=== PATIENT | female | born 1960 | race Caucasian/White ===

== ENCOUNTER 2017-10-18 08:01 | Emergency (ER) | payer MEDICARE, OTHER ==
[~2017-10-18] VITALS: Ht 152.4 cm; Wt 48.5 kg
[~2017-10-18 08:01] MED LIST: ALPR1 PO; AMLO5 PO; BUME2 PO; CIPR500 PO; CLON.1; CLON.1 PO; CLOT10; CYMBALTA; Catapres0.2 MG PO; DEXL60CA3 PO; DOCU100 PO; ESTEST.625 PO; ESTR.625; ESTR.625 PO; ESTR2 PO; FURO80 PO; GABA300; GEMF600 PO; HYDACE10B; HYDCHL12.5 PO; HYDCHL25; HYDCHL50; HYDR-86 PO; HYDR1TAB94 PO; HYDRA25 PO; INSLI100I; INSLI100I SC; INSULANI; INSULANI SUBQ; INSULANPEN SC; INSULIN HUMALOG; INSULIN LANTUS; LEVFLO250 PO; LEVFLO500 PO; LEVSOD100 PO; LEVSOD175; LEVSOD175 PO; LIQUACEL 100 LI30 ML PO; LORA.5; METO10 PO; METO100ER; METO100ER PO; METO2.5 PO; METO5A; METR500 PO; Micro-K10 MEQ PO; NORT50; OLME20 PO; OLME5TAB PO; OMEP10ER; OMEP20ER; OMEP20ER PO; OMEPRAZOLE MAGN20 MG PO; ONDA4ODT MM; ONDA8 PO; OXYACE5T PO; OXYC30 PO; OXYC5 PO; Omeprazole20 M1 PO; PANT40; PANT40 PO; PERCOCET PO; POLYOX WSR-3011 GM PO; POTCHL20ER PO; PREG150 PO; PREG200 PO; PREG75; PREG75 PO; PROM25; PROM25 PO; PROM25S PR; Percocet 5-3251 EACH PO; ROPI.25 PO; ROPI1 PO; RXOXYACE PO; SIMV10 PO; SYNTHROID0.2 MG PO; TAMS.4ER PO; TRAM50 PO; TRAN4; TRAN4 PO; TRAVER2240; TRAVER4240; VENL150ER PO; VENL75ER; VENL75ER PO; VERA240ER PO; Zofran Odt4 MG PO
[2017-10-18 09:11] LABS: BASOPHILS ABSOLUTE AUTO 0.06 K/mm3 (0.00-0.23); BASOPHILS PERCENT AUTO 1 % (0-2); EOSINOPHILS ABSOLUTE AUTO 0.16 K/mm3 (0.00-0.68); EOSINOPHILS PERCENT AUTO 2 % (0-6); Hematocrit 35.3 % (33.0-51.0); Hemoglobin 11.4 g/dL (11.5-16.0); IMMATURE GRAN ABSOLUTE AUTO 0.02 K/mm3 (0.00-0.10); IMMATURE GRAN PERCENT AUTO 0 % (0-1); LYMPHOCYTES ABSOLUTE AUTO 1.37 K/mm3 (0.84-5.20); LYMPHOCYTES PERCENT AUTO 18 % (21-46); MONOCYTES ABSOLUTE AUTO 0.49 K/mm3 (0.16-1.47); MONOCYTES PERCENT AUTO 6 % (4-13); Mean Corpuscular HGB 26.9 pg (26.0-34.0); Mean Corpuscular HGB Conc 32.3 g/dL (31.5-36.5); Mean Corpuscular Volume 83 fL (80-100); Mean Platelet Volume 10.1 fL (9.1-12.4); NEUTROPHILS ABSOLUTE AUTO 5.65 K/mm3 (1.96-9.15); NEUTROPHILS PERCENT AUTO 73 % (41-73); Platelet Count 218 K/mm3 (150-400); RDW Coefficient Variation 15.5 % (11.7-14.2); RDW Standard Deviation 46.6 fL (35.1-46.3); Red Blood Cell Count 4.24 M/mm3 (3.80-5.20); White Blood Cell Count 7.75 K/mm3 (4.00-11.30)
[2017-10-18 09:24] LABS: International Normalized Ratio 1.03; Prothrombin Time Results 10.7 Sec (9.7-11.5)
[2017-10-18 09:35] LABS: Alanine Aminotransfer (ALT/SGP 26 U/L (12-78); Albumin, Blood 1.9 g/dL (3.4-5.0); Albumin/Globulin Ratio 0.6 (0.8-1.8); Alk Phos 110 U/L (50-136); Anion Gap 7 mmol/L (6-16); Aspartate Aminotrans (AST/SGOT 18 U/L (12-37); Bilirubin, Total 0.1 mg/dL (0.1-1.0); Blood Urea Nitrogen 48 mg/dL (8-24); Bun/Creatinine Ratio 20.4 (12.0-20.0); CO2, Blood 27 mmol/L (21-32); Calcium, Blood 7.2 mg/dL (8.5-10.1); Chloride, Blood 107 mmol/L (98-108); Creatinine, Blood 2.35 mg/dL (0.40-1.00); Globulin, Blood 3.3 g/dL (2.2-4.0); Glomerular Filtration Rate 23 (60-); Glucose, Blood 79 mg/dL (70-99); Potassium, Blood 3.3 mmol/L (3.5-5.5); Sodium, Blood 141 mmol/L (136-145); Total Protein, Blood 5.2 g/dL (6.4-8.2); Troponin I <0.015 ng/mL (0.000-0.040)
[2017-10-18 11:05] LABS: Bilirubin, Urine Neg (Neg); Blood, Urine 4+ (Neg); Glucose Qualitative, Urine 3+ (Neg); Ketones, Urine Neg (Neg); Leukocyte Esterase, Urine 1+ (Neg); Nitrite, Urine Neg (Neg); Protein, Urine 4+ (Neg); Urobilinogen, Urine NORM (Normal)
[2017-10-18 11:10] LABS: Appearance, Urine Clear (Clear); Color, Urine Yellow (P-Yellow)
[2017-10-18 11:11] LABS: Bacteria Mod /hpf; Squamous Epithelial Cells Few /hpf (Few); Transitional Epithelial Cells Few /hpf (0-Rare)
[2017-10-18] MEDS ORDERED: LEVFLO500 PO (12:22)
[2017-10-19] MEDS ORDERED: PROC25S PR (13:34)
[2018-02-09] MEDS ORDERED: LEVEMIR FL100 UNIT/1 SC (11:33)
[2018-02-09] MEDS ORDERED: Prinivil10 MG PO (11:36)
== END 2017-10-18 14:21 | disposition home or self-care (01) ==
LOC: ER 08:01
PROVIDERS: Emergency Medicine
DX: N39.0 Urinary tract infection, site not specified (principal); I12.9 Hypertensive chronic kidney disease with stage 1 through stage 4 chronic kidney disease, or unspecified chronic kidney disease; N18.9 Chronic kidney disease, unspecified; G89.4 Chronic pain syndrome; R60.1 Generalized edema; E11.22 Type 2 diabetes mellitus with diabetic chronic kidney disease; E11.40 Type 2 diabetes mellitus with diabetic neuropathy, unspecified; F17.200 Nicotine dependence, unspecified, uncomplicated; Z88.1 Allergy status to other antibiotic agents; Z79.899 Other long term (current) drug therapy; Z90.49 Acquired absence of other specified parts of digestive tract; Z90.710 Acquired absence of both cervix and uterus
CPT/HCPCS: 36415; 80053; 81001; 83690; 84484; 85025; 85610; 87086; 93005; 93010; 96365; 96366; 96375; 96376; 99284; J1170; J1956; J2405; J7030

== ENCOUNTER 2017-10-19 11:46 | Emergency (ER) | payer MEDICARE, OTHER ==
[~2017-10-19] VITALS: Ht 152.4 cm; Wt 48.5 kg
[2017-10-19 12:30] LABS: BASOPHILS ABSOLUTE AUTO 0.07 K/mm3 (0.00-0.23); BASOPHILS PERCENT AUTO 1 % (0-2); EOSINOPHILS ABSOLUTE AUTO 0.16 K/mm3 (0.00-0.68); EOSINOPHILS PERCENT AUTO 2 % (0-6); IMMATURE GRAN ABSOLUTE AUTO 0.03 K/mm3 (0.00-0.10); IMMATURE GRAN PERCENT AUTO 0 % (0-1); LYMPHOCYTES ABSOLUTE AUTO 1.12 K/mm3 (0.84-5.20); LYMPHOCYTES PERCENT AUTO 11 % (21-46); MONOCYTES ABSOLUTE AUTO 0.39 K/mm3 (0.16-1.47); MONOCYTES PERCENT AUTO 4 % (4-13); Mean Corpuscular HGB 26.9 pg (26.0-34.0); Mean Corpuscular HGB Conc 32.4 g/dL (31.5-36.5); Mean Corpuscular Volume 83 fL (80-100); Mean Platelet Volume 10.3 fL (9.1-12.4); NEUTROPHILS ABSOLUTE AUTO 8.06 K/mm3 (1.96-9.15); NEUTROPHILS PERCENT AUTO 82 % (41-73); Platelet Count 237 K/mm3 (150-400); RDW Coefficient Variation 15.9 % (11.7-14.2); RDW Standard Deviation 47.8 fL (35.1-46.3); Red Blood Cell Count 4.46 M/mm3 (3.80-5.20); White Blood Cell Count 9.83 K/mm3 (4.00-11.30)
[2017-10-19 13:09] LABS: Albumin, Blood 2.2 g/dL (3.4-5.0); Albumin/Globulin Ratio 0.6 (0.8-1.8); Alk Phos 135 U/L (50-136); Anion Gap 9 mmol/L (6-16); Aspartate Aminotrans (AST/SGOT 54 U/L (12-37); Bilirubin, Total 0.2 mg/dL (0.1-1.0); Blood Urea Nitrogen 51 mg/dL (8-24); Bun/Creatinine Ratio 18.8 (12.0-20.0); CO2, Blood 24 mmol/L (21-32); Calcium, Blood 8.1 mg/dL (8.5-10.1); Chloride, Blood 103 mmol/L (98-108); Creatinine, Blood 2.71 mg/dL (0.40-1.00); Globulin, Blood 3.6 g/dL (2.2-4.0); Glomerular Filtration Rate 19 (60-); Glucose, Blood 178 mg/dL (70-99); Potassium, Blood 4.4 mmol/L (3.5-5.5); Sodium, Blood 136 mmol/L (136-145); Total Protein, Blood 5.8 g/dL (6.4-8.2)
[2017-10-19] MEDS ORDERED: PROC25S PR (13:34)
[2017-10-20] MEDS ORDERED: Omeprazole20 M1 PO (17:07)
[2017-10-20] MEDS ORDERED: TAMS.4ER PO (17:08)
[2017-10-20] MEDS ORDERED: OLME20 PO (17:13)
[2017-10-20] MEDS ORDERED: SYNTHROID0.2 MG PO (17:13)
[2017-10-20] MEDS ORDERED: FURO80 PO (17:18)
[2017-10-20] MEDS ORDERED: PREG75 PO (17:18)
[2017-10-20] MEDS ORDERED: Dazidox10 MG PO (17:19)
[2017-10-20] MEDS ORDERED: ROXICODONE5 MG PO (17:19)
[2017-10-20] MEDS ORDERED: ROPI1 PO (17:20)
[2017-10-20] MEDS ORDERED: ALUM320SU PO (17:21)
[2017-10-20] MEDS ORDERED: CLON.1 PO (17:21)
[2017-10-20] MEDS ORDERED: HYDRA25 PO (17:21)
[2017-10-20] MEDS ORDERED: Simvastatin20 MG PO (17:22)
[2017-10-20] MEDS ORDERED: GAVILAX17 GM PO (17:22)
[2017-10-20] MEDS ORDERED: INSULIN SYRING (17:23)
[2017-10-20] MEDS ORDERED: Lantus100 UNIT/1 SC (17:24)
[2018-02-09] MEDS ORDERED: LEVEMIR FL100 UNIT/1 SC (11:33)
[2018-02-09] MEDS ORDERED: Prinivil10 MG PO (11:36)
== END 2017-10-19 15:36 | disposition home or self-care (01) ==
LOC: ER 11:46
PROVIDERS: Emergency Medicine
DX: R10.9 Unspecified abdominal pain (principal); F11.23 Opioid dependence with withdrawal; R11.2 Nausea with vomiting, unspecified; Z88.8 Allergy status to other drugs, medicaments and biological substances; Z79.899 Other long term (current) drug therapy; Z79.2 Long term (current) use of antibiotics; E11.40 Type 2 diabetes mellitus with diabetic neuropathy, unspecified; I10 Essential (primary) hypertension; F17.200 Nicotine dependence, unspecified, uncomplicated
CPT/HCPCS: 36415; 80053; 83690; 85025; 93005; 93010; 96365; 96374; 96375; 99284; J1170; J1956; J2405; J2765; J7030

== ENCOUNTER 2017-10-20 15:31 | Inpatient (IN) | payer MEDICARE, OTHER ==
[~2017-10-20] VITALS: Ht 154.9 cm; Wt 58.6 kg
[~2017-10-20 15:31] MED LIST changes: +PROC25S PR
[2017-10-20 16:25] LABS: Calcium, Ionized (POC) 1.06 mmol/L (1.10-1.46); Chloride (POC) 100 mmol/L (98-108); Creatinine (POC) 3.5 mg/dL (0.6-1.0); Glucose (ISTAT POC) 327 mg/dL (70-99); Hemoglobin (POC) 13.9 g/dL (12.0-16.0); Potassium (POC) 3.8 mmol/L (3.5-5.5); Sodium (POC) 134 mmol/L (135-148); Total CO2 (POC) 24 mmol/L (21-32)
[2017-10-20 16:39] LABS: BASOPHILS ABSOLUTE AUTO 0.06 K/mm3 (0.00-0.23); BASOPHILS PERCENT AUTO 1 % (0-2); EOSINOPHILS ABSOLUTE AUTO 0.03 K/mm3 (0.00-0.68); EOSINOPHILS PERCENT AUTO 0 % (0-6); Hematocrit 40.7 % (33.0-51.0); Hemoglobin 13.3 g/dL (11.5-16.0); IMMATURE GRAN ABSOLUTE AUTO 0.08 K/mm3 (0.00-0.10); IMMATURE GRAN PERCENT AUTO 1 % (0-1); LYMPHOCYTES ABSOLUTE AUTO 1.06 K/mm3 (0.84-5.20); LYMPHOCYTES PERCENT AUTO 8 % (21-46); MONOCYTES ABSOLUTE AUTO 0.19 K/mm3 (0.16-1.47); MONOCYTES PERCENT AUTO 2 % (4-13); Mean Corpuscular HGB 27.1 pg (26.0-34.0); Mean Corpuscular HGB Conc 32.7 g/dL (31.5-36.5); Mean Corpuscular Volume 83 fL (80-100); Mean Platelet Volume 10.1 fL (9.1-12.4); NEUTROPHILS ABSOLUTE AUTO 11.45 K/mm3 (1.96-9.15); NEUTROPHILS PERCENT AUTO 89 % (41-73); Platelet Count 260 K/mm3 (150-400); RDW Coefficient Variation 15.8 % (11.7-14.2); RDW Standard Deviation 47.4 fL (35.1-46.3); Red Blood Cell Count 4.91 M/mm3 (3.80-5.20); White Blood Cell Count 12.87 K/mm3 (4.00-11.30)
[2017-10-20 17:02] LABS: Albumin, Blood 2.8 g/dL (3.4-5.0); Albumin/Globulin Ratio 0.7 (0.8-1.8); Bilirubin, Total 0.4 mg/dL (0.1-1.0); Bun/Creatinine Ratio 20.5 (12.0-20.0); Calcium, Blood 8.8 mg/dL (8.5-10.1); Creatinine, Blood 3.17 mg/dL (0.40-1.00); Globulin, Blood 3.8 g/dL (2.2-4.0); Potassium, Blood 3.8 mmol/L (3.5-5.5); Total Protein, Blood 6.6 g/dL (6.4-8.2)
[2017-10-20] MEDS ORDERED: Omeprazole20 M1 PO (17:07)
[2017-10-20] MEDS ORDERED: TAMS.4ER PO (17:08)
[2017-10-20] MEDS ORDERED: OLME20 PO (17:13)
[2017-10-20] MEDS ORDERED: SYNTHROID0.2 MG PO (17:13)
[2017-10-20] MEDS ORDERED: FURO80 PO (17:18)
[2017-10-20] MEDS ORDERED: PREG75 PO (17:18)
[2017-10-20] MEDS ORDERED: ROXICODONE5 MG PO (17:19)
[2017-10-20] MEDS ORDERED: Dazidox10 MG PO (17:19)
[2017-10-20] MEDS ORDERED: ROPI1 PO (17:20)
[2017-10-20] MEDS ORDERED: ALUM320SU PO (17:21)
[2017-10-20] MEDS ORDERED: HYDRA25 PO (17:21)
[2017-10-20] MEDS ORDERED: CLON.1 PO (17:21)
[2017-10-20] MEDS ORDERED: Simvastatin20 MG PO (17:22)
[2017-10-20] MEDS ORDERED: GAVILAX17 GM PO (17:22)
[2017-10-20] MEDS ORDERED: INSULIN SYRING (17:23)
[2017-10-20] MEDS ORDERED: Lantus100 UNIT/1 SC (17:24)
[2017-10-21 00:31] LABS: Hematocrit 36.7 % (33.0-51.0); Hemoglobin 11.7 g/dL (11.5-16.0)
[2017-10-21 06:20] LABS: Hematocrit 32.7 % (33.0-51.0); Hemoglobin 10.7 g/dL (11.5-16.0); Mean Corpuscular HGB Conc 32.7 g/dL (31.5-36.5); Mean Corpuscular Volume 83 fL (80-100); Mean Platelet Volume 10.2 fL (9.1-12.4); Platelet Count 221 K/mm3 (150-400); RDW Coefficient Variation 15.8 % (11.7-14.2); RDW Standard Deviation 47.2 fL (35.1-46.3); Red Blood Cell Count 3.96 M/mm3 (3.80-5.20); White Blood Cell Count 11.22 K/mm3 (4.00-11.30)
[2017-10-21 06:43] LABS: Alanine Aminotransfer (ALT/SGP 39 U/L (12-78); Albumin, Blood 2.2 g/dL (3.4-5.0); Albumin/Globulin Ratio 0.7 (0.8-1.8); Alk Phos 117 U/L (50-136); Anion Gap 17 mmol/L (6-16); Aspartate Aminotrans (AST/SGOT 34 U/L (12-37); Bilirubin, Total 0.3 mg/dL (0.1-1.0); Blood Urea Nitrogen 75 mg/dL (8-24); Bun/Creatinine Ratio 22.3 (12.0-20.0); CO2, Blood 19 mmol/L (21-32); Calcium, Blood 7.7 mg/dL (8.5-10.1); Chloride, Blood 102 mmol/L (98-108); Creatinine, Blood 3.37 mg/dL (0.40-1.00); Globulin, Blood 3.1 g/dL (2.2-4.0); Glomerular Filtration Rate 15 (60-); Glucose, Blood 249 mg/dL (70-99); Magnesium, Blood 2.2 mg/dL (1.6-2.4); Phosphorus, Blood 5.2 mg/dL (2.5-4.9); Potassium, Blood 3.4 mmol/L (3.5-5.5); Sodium, Blood 138 mmol/L (136-145); Total Protein, Blood 5.3 g/dL (6.4-8.2)
[2017-10-21 08:12] LABS: PCO2 Arterial 31 mmHg (35-45); PO2 Arterial 78 mmHg (80-100); pH Blood Arterial 7.41 (7.35-7.45)
[2017-10-22 06:06] LABS: Calcium, Blood 6.7 mg/dL (8.5-10.1); Creatinine, Blood 3.52 mg/dL (0.40-1.00); Potassium, Blood 4.7 mmol/L (3.5-5.5)
[2017-10-23 05:21] LABS: BASOPHILS ABSOLUTE AUTO 0.03 K/mm3 (0.00-0.23); BASOPHILS PERCENT AUTO 0 % (0-2); EOSINOPHILS ABSOLUTE AUTO 0.37 K/mm3 (0.00-0.68); EOSINOPHILS PERCENT AUTO 5 % (0-6); Hematocrit 30.9 % (33.0-51.0); Hemoglobin 9.9 g/dL (11.5-16.0); IMMATURE GRAN ABSOLUTE AUTO 0.04 K/mm3 (0.00-0.10); IMMATURE GRAN PERCENT AUTO 1 % (0-1); LYMPHOCYTES PERCENT AUTO 15 % (21-46); MONOCYTES ABSOLUTE AUTO 0.41 K/mm3 (0.16-1.47); MONOCYTES PERCENT AUTO 6 % (4-13); Mean Corpuscular Volume 84 fL (80-100); Mean Platelet Volume 10.4 fL (9.1-12.4); NEUTROPHILS ABSOLUTE AUTO 5.41 K/mm3 (1.96-9.15); NEUTROPHILS PERCENT AUTO 74 % (41-73); Platelet Count 182 K/mm3 (150-400); RDW Coefficient Variation 16.4 % (11.7-14.2); RDW Standard Deviation 50.5 fL (35.1-46.3); Red Blood Cell Count 3.66 M/mm3 (3.80-5.20); White Blood Cell Count 7.36 K/mm3 (4.00-11.30)
[2017-10-23 05:55] LABS: Alanine Aminotransfer (ALT/SGP 202 U/L (12-78); Albumin, Blood 1.8 g/dL (3.4-5.0); Albumin/Globulin Ratio 0.6 (0.8-1.8); Alk Phos 209 U/L (50-136); Anion Gap 10 mmol/L (6-16); Aspartate Aminotrans (AST/SGOT 171 U/L (12-37); Bilirubin, Total 0.4 mg/dL (0.1-1.0); Blood Urea Nitrogen 71 mg/dL (8-24); Bun/Creatinine Ratio 19.1 (12.0-20.0); CO2, Blood 21 mmol/L (21-32); Calcium, Blood 6.9 mg/dL (8.5-10.1); Chloride, Blood 100 mmol/L (98-108); Creatinine, Blood 3.71 mg/dL (0.40-1.00); Globulin, Blood 2.8 g/dL (2.2-4.0); Glomerular Filtration Rate 13 (60-); Glucose, Blood 137 mg/dL (70-99); Potassium, Blood 4.3 mmol/L (3.5-5.5); Sodium, Blood 131 mmol/L (136-145); Total Protein, Blood 4.6 g/dL (6.4-8.2)
[2017-10-24 05:22] LABS: Hematocrit 32.6 % (33.0-51.0); Hemoglobin 10.4 g/dL (11.5-16.0)
[2017-10-24 05:40] LABS: Albumin, Blood 1.8 g/dL (3.4-5.0); Anion Gap 9 mmol/L (6-16); Blood Urea Nitrogen 73 mg/dL (8-24); Bun/Creatinine Ratio 18.9 (12.0-20.0); CO2, Blood 22 mmol/L (21-32); Calcium, Blood 7.1 mg/dL (8.5-10.1); Chloride, Blood 97 mmol/L (98-108); Creatinine, Blood 3.87 mg/dL (0.40-1.00); Glomerular Filtration Rate 13 (60-); Glucose, Blood 240 mg/dL (70-99); Magnesium, Blood 2.1 mg/dL (1.6-2.4); Phosphorus, Blood 2.4 mg/dL (2.5-4.9); Potassium, Blood 4.6 mmol/L (3.5-5.5); Sodium, Blood 128 mmol/L (136-145)
[2017-10-25 04:47] LABS: Hematocrit 32.7 % (33.0-51.0); Hemoglobin 10.5 g/dL (11.5-16.0)
[2017-10-25 05:10] LABS: Albumin, Blood 1.9 g/dL (3.4-5.0); Anion Gap 9 mmol/L (6-16); Blood Urea Nitrogen 74 mg/dL (8-24); Bun/Creatinine Ratio 19.2 (12.0-20.0); CO2, Blood 24 mmol/L (21-32); Calcium, Blood 7.6 mg/dL (8.5-10.1); Chloride, Blood 97 mmol/L (98-108); Creatinine, Blood 3.86 mg/dL (0.40-1.00); Glomerular Filtration Rate 13 (60-); Glucose, Blood 193 mg/dL (70-99); Magnesium, Blood 2.1 mg/dL (1.6-2.4); Phosphorus, Blood 2.7 mg/dL (2.5-4.9); Potassium, Blood 4.3 mmol/L (3.5-5.5); Sodium, Blood 130 mmol/L (136-145)
[2017-10-26 05:35] LABS: Hematocrit 32.2 % (33.0-51.0); Hemoglobin 10.4 g/dL (11.5-16.0)
[2017-10-26 06:00] LABS: Albumin, Blood 1.9 g/dL (3.4-5.0); Anion Gap 8 mmol/L (6-16); Blood Urea Nitrogen 55 mg/dL (8-24); Bun/Creatinine Ratio 16.9 (12.0-20.0); CO2, Blood 24 mmol/L (21-32); Calcium, Blood 7.3 mg/dL (8.5-10.1); Chloride, Blood 97 mmol/L (98-108); Creatinine, Blood 3.25 mg/dL (0.40-1.00); Glomerular Filtration Rate 16 (60-); Glucose, Blood 272 mg/dL (70-99); Magnesium, Blood 2.1 mg/dL (1.6-2.4); Phosphorus, Blood 2.4 mg/dL (2.5-4.9); Potassium, Blood 4.8 mmol/L (3.5-5.5); Sodium, Blood 129 mmol/L (136-145)
[2017-10-26 18:00] LABS: HCV Non Reactive (NR)
[2017-10-27 04:45] LABS: Hematocrit 29.3 % (33.0-51.0); Hemoglobin 9.5 g/dL (11.5-16.0)
[2017-10-27 05:07] LABS: Albumin, Blood 1.8 g/dL (3.4-5.0); Anion Gap 7 mmol/L (6-16); Blood Urea Nitrogen 41 mg/dL (8-24); Bun/Creatinine Ratio 16.6 (12.0-20.0); CO2, Blood 27 mmol/L (21-32); Calcium, Blood 7.3 mg/dL (8.5-10.1); Chloride, Blood 100 mmol/L (98-108); Creatinine, Blood 2.47 mg/dL (0.40-1.00); Glomerular Filtration Rate 21 (60-); Glucose, Blood 154 mg/dL (70-99); Phosphorus, Blood 2.2 mg/dL (2.5-4.9); Potassium, Blood 4.4 mmol/L (3.5-5.5); Sodium, Blood 134 mmol/L (136-145)
[2017-10-28 04:43] LABS: Hematocrit 32.5 % (33.0-51.0); Hemoglobin 10.5 g/dL (11.5-16.0)
[2017-10-28 05:02] LABS: Anion Gap 8 mmol/L (6-16); Blood Urea Nitrogen 29 mg/dL (8-24); Bun/Creatinine Ratio 13.6 (12.0-20.0); CO2, Blood 27 mmol/L (21-32); Calcium, Blood 7.6 mg/dL (8.5-10.1); Chloride, Blood 98 mmol/L (98-108); Creatinine, Blood 2.13 mg/dL (0.40-1.00); Glomerular Filtration Rate 25 (60-); Glucose, Blood 247 mg/dL (70-99); Phosphorus, Blood 2.1 mg/dL (2.5-4.9); Potassium, Blood 4.3 mmol/L (3.5-5.5); Sodium, Blood 133 mmol/L (136-145)
[2017-10-28] MEDS ORDERED: BUME2 PO (11:21)
[2017-10-28] MEDS ORDERED: DOCU100 PO (11:21)
[2017-10-28] MEDS ORDERED: INSU100I6 SC (11:22)
[2017-10-28] MEDS ORDERED: LIDO700A20 TOP (11:23)
[2017-10-28] MEDS ORDERED: SENN187 PO (11:23)
[2018-02-09] MEDS ORDERED: LEVEMIR FL100 UNIT/1 SC (11:33)
[2018-02-09] MEDS ORDERED: Prinivil10 MG PO (11:36)
== END 2017-10-28 13:57 | disposition home or self-care (01) | DRG 699 ==
LOC: ER 15:31 → MEDS 15:32 → PCU 15:32 → ER 18:16 → PCU 18:16 → MEDS 10-21 17:13 → ENPENDDIS 10-28 10:16 → MEDS 10-28 13:57
PROVIDERS: Emergency Medicine; Hospitalist; Internal Medicine; Internal Medicine Nephrology; Surgery
PROC: 5A1D70Z Performance of Urinary Filtration, Intermittent, Less than 6 Hours Per Day (ICD-10-PCS; 2017-10-25)
PROC: 02HV33Z Insertion of Infusion Device into Superior Vena Cava, Percutaneous Approach (ICD-10-PCS; principal; 2017-10-25 13:00)
PROC: 5A1D70Z Performance of Urinary Filtration, Intermittent, Less than 6 Hours Per Day (ICD-10-PCS; 2017-10-26)
PROC: 5A1D70Z Performance of Urinary Filtration, Intermittent, Less than 6 Hours Per Day (ICD-10-PCS; 2017-10-27)
DX: N04.9 Nephrotic syndrome with unspecified morphologic changes (principal); F11.20 Opioid dependence, uncomplicated; K92.0 Hematemesis; E11.40 Type 2 diabetes mellitus with diabetic neuropathy, unspecified; E11.21 Type 2 diabetes mellitus with diabetic nephropathy; K31.84 Gastroparesis; E11.22 Type 2 diabetes mellitus with diabetic chronic kidney disease; N18.4 Chronic kidney disease, stage 4 (severe); I16.1 Hypertensive emergency; E87.1 Hypo-osmolality and hyponatremia; N17.0 Acute kidney failure with tubular necrosis; E89.0 Postprocedural hypothyroidism; I12.9 Hypertensive chronic kidney disease with stage 1 through stage 4 chronic kidney disease, or unspecified chronic kidney disease; E78.5 Hyperlipidemia, unspecified; K59.00 Constipation, unspecified; E21.3 Hyperparathyroidism, unspecified; R80.9 Proteinuria, unspecified; R31.29 Other microscopic hematuria; E86.0 Dehydration; E11.43 Type 2 diabetes mellitus with diabetic autonomic (poly)neuropathy; G89.29 Other chronic pain; F17.210 Nicotine dependence, cigarettes, uncomplicated; E66.9 Obesity, unspecified; E87.6 Hypokalemia; E88.09 Other disorders of plasma-protein metabolism, not elsewhere classified; E83.39 Other disorders of phosphorus metabolism; Z90.49 Acquired absence of other specified parts of digestive tract; Z79.899 Other long term (current) drug therapy; Z79.4 Long term (current) use of insulin; Z87.442 Personal history of urinary calculi; Z85.850 Personal history of malignant neoplasm of thyroid; Z88.1 Allergy status to other antibiotic agents; Z68.24 Body mass index [BMI] 24.0-24.9, adult
CPT/HCPCS: 36415; 36600; 51702; 71046; 77001; 80047; 80048; 80053; 80069; 80074; 82803; 82947; 83690; 83735; 84100; 85014; 85018; 85025; 85027; 86706; 93005; 93010; 93970; 96361; 96374; 96376; 99285; C1750; C9113; G0378; J0360; J1170; J1644; J1815; J2250; J2405; J2765; J3010; J3480; J7030; J7040; J7050; J7060; P9041

== ENCOUNTER 2017-11-08 15:15 | Inpatient (IN) | payer MEDICARE, OTHER ==
[~2017-11-08] VITALS: Ht 152.4 cm; Wt 61.0 kg
[~2017-11-08 15:15] MED LIST changes: +ALUM320SU PO; +Dazidox10 MG PO; +GAVILAX17 GM PO; +INSU100I6 SC; +INSULIN SYRING; +LIDO700A20 TOP; +Lantus100 UNIT/1 SC; +ROXICODONE5 MG PO; +SENN187 PO; +Simvastatin20 MG PO
[2017-11-08 15:55] LABS: BASOPHILS ABSOLUTE AUTO 0.07 K/mm3 (0.00-0.23); BASOPHILS PERCENT AUTO 1 % (0-2); EOSINOPHILS ABSOLUTE AUTO 0.33 K/mm3 (0.00-0.68); EOSINOPHILS PERCENT AUTO 4 % (0-6); Hematocrit 30.6 % (33.0-51.0); Hemoglobin 9.8 g/dL (11.5-16.0); IMMATURE GRAN ABSOLUTE AUTO 0.04 K/mm3 (0.00-0.10); IMMATURE GRAN PERCENT AUTO 1 % (0-1); LYMPHOCYTES ABSOLUTE AUTO 1.15 K/mm3 (0.84-5.20); LYMPHOCYTES PERCENT AUTO 14 % (21-46); MONOCYTES ABSOLUTE AUTO 0.37 K/mm3 (0.16-1.47); MONOCYTES PERCENT AUTO 5 % (4-13); Mean Corpuscular HGB 27.7 pg (26.0-34.0); Mean Corpuscular Volume 86 fL (80-100); NEUTROPHILS ABSOLUTE AUTO 6.23 K/mm3 (1.96-9.15); NEUTROPHILS PERCENT AUTO 76 % (41-73); Platelet Count 220 K/mm3 (150-400); RDW Coefficient Variation 16.2 % (11.7-14.2); RDW Standard Deviation 51.3 fL (35.1-46.3); Red Blood Cell Count 3.54 M/mm3 (3.80-5.20); White Blood Cell Count 8.19 K/mm3 (4.00-11.30)
[2017-11-08 16:11] LABS: Alanine Aminotransfer (ALT/SGP 58 U/L (12-78); Albumin, Blood 2.3 g/dL (3.4-5.0); Albumin/Globulin Ratio 0.6 (0.8-1.8); Alk Phos 154 U/L (50-136); Anion Gap 9 mmol/L (6-16); Aspartate Aminotrans (AST/SGOT 49 U/L (12-37); Bilirubin, Total 0.2 mg/dL (0.1-1.0); Blood Urea Nitrogen 17 mg/dL (8-24); Bun/Creatinine Ratio 8.9 (12.0-20.0); CO2, Blood 32 mmol/L (21-32); Calcium, Blood 7.9 mg/dL (8.5-10.1); Chloride, Blood 96 mmol/L (98-108); Creatinine, Blood 1.92 mg/dL (0.40-1.00); Globulin, Blood 3.6 g/dL (2.2-4.0); Glomerular Filtration Rate 29 (60-); Glucose, Blood 246 mg/dL (70-99); Potassium, Blood 4.2 mmol/L (3.5-5.5); Sodium, Blood 137 mmol/L (136-145); Total Protein, Blood 5.9 g/dL (6.4-8.2); Troponin I <0.015 ng/mL (0.000-0.040)
[2017-11-08 16:12] LABS: International Normalized Ratio 0.94; Prothrombin Time Results 9.8 Sec (9.7-11.5)
[2017-11-09 04:08] LABS: Appearance, Urine Clear (Clear); Color, Urine Yellow (P-Yellow); Leukocyte Esterase, Urine Neg (Neg); Nitrite, Urine Neg (Neg); Protein, Urine 4+ (Neg); Source, Urine Catheter
[2017-11-09 04:09] LABS: Bacteria Few /hpf; Bilirubin, Urine Neg (Neg); Blood, Urine Neg (Neg); Glucose Qualitative, Urine 2+ (Neg); Ketones, Urine Neg (Neg); Red Blood Cells, Urine 0-2 /hpf (0-2); Squamous Epithelial Cells Not Seen /hpf (Few); Urobilinogen, Urine NORM (Normal)
[2017-11-09 05:17] LABS: BASOPHILS ABSOLUTE AUTO 0.05 K/mm3 (0.00-0.23); BASOPHILS PERCENT AUTO 1 % (0-2); EOSINOPHILS ABSOLUTE AUTO 0.33 K/mm3 (0.00-0.68); EOSINOPHILS PERCENT AUTO 6 % (0-6); Hematocrit 27.7 % (33.0-51.0); Hemoglobin 8.5 g/dL (11.5-16.0); IMMATURE GRAN ABSOLUTE AUTO 0.02 K/mm3 (0.00-0.10); IMMATURE GRAN PERCENT AUTO 0 % (0-1); LYMPHOCYTES PERCENT AUTO 29 % (21-46); MONOCYTES ABSOLUTE AUTO 0.33 K/mm3 (0.16-1.47); MONOCYTES PERCENT AUTO 6 % (4-13); Mean Corpuscular HGB Conc 30.7 g/dL (31.5-36.5); Mean Corpuscular Volume 88 fL (80-100); Mean Platelet Volume 9.6 fL (9.1-12.4); NEUTROPHILS ABSOLUTE AUTO 3.18 K/mm3 (1.96-9.15); NEUTROPHILS PERCENT AUTO 58 % (41-73); Platelet Count 180 K/mm3 (150-400); RDW Coefficient Variation 16.5 % (11.7-14.2); Red Blood Cell Count 3.15 M/mm3 (3.80-5.20); White Blood Cell Count 5.51 K/mm3 (4.00-11.30)
[2017-11-09 05:51] LABS: Magnesium, Blood 2.1 mg/dL (1.6-2.4)
[2017-11-09 05:53] LABS: Anion Gap 6 mmol/L (6-16); Blood Urea Nitrogen 14 mg/dL (8-24); Bun/Creatinine Ratio 7.8 (12.0-20.0); CO2, Blood 34 mmol/L (21-32); Calcium, Blood 7.8 mg/dL (8.5-10.1); Chloride, Blood 98 mmol/L (98-108); Glomerular Filtration Rate 31 (60-); Glucose, Blood 89 mg/dL (70-99); Phosphorus, Blood 2.8 mg/dL (2.5-4.9); Sodium, Blood 138 mmol/L (136-145)
[2017-11-10 05:47] LABS: Hematocrit 31.1 % (33.0-51.0); Hemoglobin 9.9 g/dL (11.5-16.0)
[2017-11-10 06:11] LABS: Anion Gap 8 mmol/L (6-16); Blood Urea Nitrogen 19 mg/dL (8-24); Bun/Creatinine Ratio 10.6 (12.0-20.0); CO2, Blood 28 mmol/L (21-32); Calcium, Blood 7.6 mg/dL (8.5-10.1); Chloride, Blood 98 mmol/L (98-108); Glomerular Filtration Rate 31 (60-); Glucose, Blood 132 mg/dL (70-99); Magnesium, Blood 2.1 mg/dL (1.6-2.4); Phosphorus, Blood 3.5 mg/dL (2.5-4.9); Potassium, Blood 4.8 mmol/L (3.5-5.5); Sodium, Blood 134 mmol/L (136-145)
[2017-11-11 05:50] LABS: Hematocrit 31.7 % (33.0-51.0); Hemoglobin 10.1 g/dL (11.5-16.0)
[2017-11-11 06:22] LABS: Anion Gap 7 mmol/L (6-16); Blood Urea Nitrogen 24 mg/dL (8-24); Bun/Creatinine Ratio 11.4 (12.0-20.0); CO2, Blood 29 mmol/L (21-32); Calcium, Blood 7.8 mg/dL (8.5-10.1); Chloride, Blood 96 mmol/L (98-108); Creatinine, Blood 2.11 mg/dL (0.40-1.00); Glomerular Filtration Rate 26 (60-); Glucose, Blood 155 mg/dL (70-99); Magnesium, Blood 2.2 mg/dL (1.6-2.4); Phosphorus, Blood 3.3 mg/dL (2.5-4.9); Potassium, Blood 4.9 mmol/L (3.5-5.5); Sodium, Blood 132 mmol/L (136-145)
[2017-11-12 05:25] LABS: Hematocrit 31.4 % (33.0-51.0); Hemoglobin 9.8 g/dL (11.5-16.0)
[2017-11-12 05:46] LABS: Albumin, Blood 2.2 g/dL (3.4-5.0); Anion Gap 5 mmol/L (6-16); Blood Urea Nitrogen 25 mg/dL (8-24); Bun/Creatinine Ratio 14.3 (12.0-20.0); CO2, Blood 29 mmol/L (21-32); Calcium, Blood 7.9 mg/dL (8.5-10.1); Chloride, Blood 101 mmol/L (98-108); Creatinine, Blood 1.75 mg/dL (0.40-1.00); Glomerular Filtration Rate 32 (60-); Glucose, Blood 88 mg/dL (70-99); Magnesium, Blood 2.3 mg/dL (1.6-2.4); Phosphorus, Blood 2.7 mg/dL (2.5-4.9); Potassium, Blood 4.6 mmol/L (3.5-5.5); Sodium, Blood 135 mmol/L (136-145)
[2017-11-13 05:24] LABS: BASOPHILS ABSOLUTE AUTO 0.05 K/mm3 (0.00-0.23); BASOPHILS PERCENT AUTO 1 % (0-2); EOSINOPHILS ABSOLUTE AUTO 0.28 K/mm3 (0.00-0.68); EOSINOPHILS PERCENT AUTO 4 % (0-6); Hematocrit 28.9 % (33.0-51.0); Hemoglobin 9.3 g/dL (11.5-16.0); IMMATURE GRAN ABSOLUTE AUTO 0.03 K/mm3 (0.00-0.10); IMMATURE GRAN PERCENT AUTO 1 % (0-1); LYMPHOCYTES ABSOLUTE AUTO 1.48 K/mm3 (0.84-5.20); LYMPHOCYTES PERCENT AUTO 23 % (21-46); MONOCYTES ABSOLUTE AUTO 0.42 K/mm3 (0.16-1.47); MONOCYTES PERCENT AUTO 7 % (4-13); Mean Corpuscular HGB 27.8 pg (26.0-34.0); Mean Corpuscular HGB Conc 32.2 g/dL (31.5-36.5); Mean Corpuscular Volume 87 fL (80-100); Mean Platelet Volume 10.5 fL (9.1-12.4); NEUTROPHILS ABSOLUTE AUTO 4.25 K/mm3 (1.96-9.15); NEUTROPHILS PERCENT AUTO 65 % (41-73); Platelet Count 167 K/mm3 (150-400); RDW Standard Deviation 52.6 fL (35.1-46.3); Red Blood Cell Count 3.34 M/mm3 (3.80-5.20); White Blood Cell Count 6.51 K/mm3 (4.00-11.30)
[2017-11-13 05:55] LABS: Albumin, Blood 1.9 g/dL (3.4-5.0); Anion Gap 6 mmol/L (6-16); Blood Urea Nitrogen 42 mg/dL (8-24); Bun/Creatinine Ratio 18.7 (12.0-20.0); CO2, Blood 28 mmol/L (21-32); Calcium, Blood 7.8 mg/dL (8.5-10.1); Chloride, Blood 101 mmol/L (98-108); Creatinine, Blood 2.25 mg/dL (0.40-1.00); Glomerular Filtration Rate 24 (60-); Glucose, Blood 181 mg/dL (70-99); Magnesium, Blood 2.3 mg/dL (1.6-2.4); Phosphorus, Blood 2.8 mg/dL (2.5-4.9); Potassium, Blood 4.6 mmol/L (3.5-5.5); Sodium, Blood 135 mmol/L (136-145)
[2017-11-13] MEDS ORDERED: ACET325 PO (16:10)
[2017-11-13] MEDS ORDERED: AMLO5 PO (16:10)
[2017-11-13] MEDS ORDERED: Amitiza24 MCG PO (16:11)
[2017-11-13] MEDS ORDERED: SIME80CH PO (16:12)
[2018-02-09] MEDS ORDERED: LEVEMIR FL100 UNIT/1 SC (11:33)
[2018-02-09] MEDS ORDERED: Prinivil10 MG PO (11:36)
== END 2017-11-13 16:51 | disposition home or self-care (01) | DRG 699 ==
LOC: ER 15:15 → MEDS 16:52 → ENPENDDIS 11-13 11:00 → MEDS 11-13 16:51
PROVIDERS: Emergency Medicine; Internal Medicine; Internal Medicine Nephrology
DX: N04.9 Nephrotic syndrome with unspecified morphologic changes (principal); R18.8 Other ascites; E11.21 Type 2 diabetes mellitus with diabetic nephropathy; N17.9 Acute kidney failure, unspecified; N18.4 Chronic kidney disease, stage 4 (severe); Z99.2 Dependence on renal dialysis; K59.03 Drug induced constipation; T40.2X5A Adverse effect of other opioids, initial encounter; E11.22 Type 2 diabetes mellitus with diabetic chronic kidney disease; F17.210 Nicotine dependence, cigarettes, uncomplicated; Z79.4 Long term (current) use of insulin; Z85.850 Personal history of malignant neoplasm of thyroid; Z79.891 Long term (current) use of opiate analgesic
CPT/HCPCS: 36415; 36430; 71046; 74018; 74176; 76705; 80053; 80069; 81001; 82140; 82607; 82746; 82947; 83690; 83735; 83880; 84484; 85014; 85018; 85025; 85610; 86850; 86900; 86901; 86923; 93005; 93010; 96374; 96375; 97110; 97161; 99285; G8978; G8979; G8980; J0881; J1170; J1644; J1815; J2405; J3010; P9016; P9041

== ENCOUNTER → 2018-02-11 | Outpatient (CLI) | payer MEDICARE, OTHER ==
[~2018-02-11] MED LIST changes: +ACET325 PO; +Amitiza24 MCG PO; +LEVEMIR FL100 UNIT/1 SC; +Prinivil10 MG PO; +SIME80CH PO
[2018-02-11 16:08] LABS: U Amphetamine Screen Not Detected; U Barbituate Screen Not Detected; U Benzodiazapine Screen Not Detected; U Buprenorphine Screen Not Detected; U Cannabinoids Screen Not Detected; U Cocaine Screen Not Detected; U Methadone Screen Not Detected; U Methamphetamine Screen Not Detected; U Opiates Screen Not Detected; U Oxycodone Screen DETECTED; U Phencyclidine Screen Not Detected; U Propoxyphene Screen Not Detected
== END | disposition home or self-care (01) ==
LOC: LAB SHORT 12:15 → LAB 12:15
PROVIDERS: Internal Medicine Hematology & Oncology
DX: Z51.81 Encounter for therapeutic drug level monitoring (principal); Z79.899 Other long term (current) drug therapy
CPT/HCPCS: G0480

== ENCOUNTER 2018-03-09 12:41 | Inpatient (IN) | payer MEDICARE, OTHER ==
[~2018-03-09] VITALS: Ht 152.4 cm; Wt 48.5 kg
[2018-03-09 14:53] LABS: Adenovirus F 40/41 Not Detected (NOT DETECT); Astrovirus Not Detected (NOT DETECT); Campylobacter Sp Not Detected (NOT DETECT); Cryptosporidium Not Detected (NOT DETECT); Cyclospora Cayetanensis Not Detected (NOT DETECT); E. Coli O157 Not Detected (NOT DETECT); Entamoeba Histolytica Not Detected (NOT DETECT); Enteroaggregative E. coli-EAEC Not Detected (NOT DETECT); Enteropathogenic E. coli-EPEC Not Detected (NOT DETECT); Enterotoxigenic E. coli-ETEC Not Detected (NOT DETECT); Giardia Lamblia Not Detected (NOT DETECT); Norovirus GI/GII Not Detected (NOT DETECT); Plesiomonas Shigelloides Not Detected (NOT DETECT); Rotavirus A Not Detected (NOT DETECT); Salmonella Sp Not Detected (NOT DETECT); Sapovirus Not Detected (NOT DETECT); Shiga Toxin-prod E. coli-STEC Not Detected (NOT DETECT); Shigella/Enteroin E. coli-EIEC Not Detected (NOT DETECT); Vibrio Cholerae Not Detected (NOT DETECT); Vibrio Sp Not Detected (NOT DETECT); Yersinia Enterocolitica Not Detected (NOT DETECT)
[2018-03-09 15:29] LABS: BASOPHILS ABSOLUTE AUTO 0.03 K/mm3 (0.00-0.23); BASOPHILS PERCENT AUTO 0 % (0-2); EOSINOPHILS ABSOLUTE AUTO 0.03 K/mm3 (0.00-0.68); EOSINOPHILS PERCENT AUTO 0 % (0-6); Hematocrit 39.6 % (33.0-51.0); Hemoglobin 13.1 g/dL (11.5-16.0); IMMATURE GRAN ABSOLUTE AUTO 0.05 K/mm3 (0.00-0.10); IMMATURE GRAN PERCENT AUTO 1 % (0-1); LYMPHOCYTES ABSOLUTE AUTO 0.68 K/mm3 (0.84-5.20); LYMPHOCYTES PERCENT AUTO 8 % (21-46); MONOCYTES ABSOLUTE AUTO 0.21 K/mm3 (0.16-1.47); MONOCYTES PERCENT AUTO 3 % (4-13); Mean Corpuscular HGB 28.5 pg (26.0-34.0); Mean Corpuscular HGB Conc 33.1 g/dL (31.5-36.5); Mean Corpuscular Volume 86 fL (80-100); NEUTROPHILS ABSOLUTE AUTO 7.49 K/mm3 (1.96-9.15); NEUTROPHILS PERCENT AUTO 88 % (41-73); Platelet Count 233 K/mm3 (150-400); RDW Coefficient Variation 15.5 % (11.7-14.2); RDW Standard Deviation 48.6 fL (35.1-46.3); White Blood Cell Count 8.49 K/mm3 (4.00-11.30)
[2018-03-09 15:47] LABS: Albumin, Blood 2.2 g/dL (3.4-5.0); Albumin/Globulin Ratio 0.6 (0.8-1.8); Bilirubin, Total 0.3 mg/dL (0.1-1.0); Bun/Creatinine Ratio 13.1 (12.0-20.0); Calcium, Blood 7.9 mg/dL (8.5-10.1); Creatinine, Blood 1.91 mg/dL (0.40-1.00); Globulin, Blood 3.5 g/dL (2.2-4.0); Potassium, Blood 3.6 mmol/L (3.5-5.5); Total Protein, Blood 5.7 g/dL (6.4-8.2)
[2018-03-09 23:00] LABS: Hematocrit 37.9 % (33.0-51.0); Hemoglobin 12.8 g/dL (11.5-16.0)
[2018-03-10 05:41] LABS: BASOPHILS ABSOLUTE AUTO 0.02 K/mm3 (0.00-0.23); BASOPHILS PERCENT AUTO 0 % (0-2); EOSINOPHILS PERCENT AUTO 0 % (0-6); Hematocrit 38.5 % (33.0-51.0); Hemoglobin 12.8 g/dL (11.5-16.0); IMMATURE GRAN ABSOLUTE AUTO 0.05 K/mm3 (0.00-0.10); IMMATURE GRAN PERCENT AUTO 0 % (0-1); LYMPHOCYTES ABSOLUTE AUTO 0.86 K/mm3 (0.84-5.20); LYMPHOCYTES PERCENT AUTO 7 % (21-46); MONOCYTES ABSOLUTE AUTO 0.52 K/mm3 (0.16-1.47); MONOCYTES PERCENT AUTO 4 % (4-13); Mean Corpuscular HGB 28.6 pg (26.0-34.0); Mean Corpuscular HGB Conc 33.2 g/dL (31.5-36.5); Mean Corpuscular Volume 86 fL (80-100); Mean Platelet Volume 10.4 fL (9.1-12.4); NEUTROPHILS ABSOLUTE AUTO 11.15 K/mm3 (1.96-9.15); NEUTROPHILS PERCENT AUTO 89 % (41-73); Platelet Count 250 K/mm3 (150-400); RDW Coefficient Variation 15.9 % (11.7-14.2); Red Blood Cell Count 4.48 M/mm3 (3.80-5.20)
[2018-03-10 06:07] LABS: Alanine Aminotransfer (ALT/SGP 53 U/L (12-78); Albumin, Blood 2.2 g/dL (3.4-5.0); Albumin/Globulin Ratio 0.6 (0.8-1.8); Alk Phos 157 U/L (50-136); Anion Gap 8 mmol/L (6-16); Aspartate Aminotrans (AST/SGOT 35 U/L (12-37); Bilirubin, Total 0.4 mg/dL (0.1-1.0); Blood Urea Nitrogen 31 mg/dL (8-24); CO2, Blood 34 mmol/L (21-32); Calcium, Blood 7.9 mg/dL (8.5-10.1); Chloride, Blood 99 mmol/L (98-108); Creatinine, Blood 2.38 mg/dL (0.40-1.00); Globulin, Blood 3.7 g/dL (2.2-4.0); Glomerular Filtration Rate 22 (60-); Glucose, Blood 133 mg/dL (70-99); Magnesium, Blood 1.8 mg/dL (1.6-2.4); Phosphorus, Blood 2.4 mg/dL (2.5-4.9); Potassium, Blood 2.8 mmol/L (3.5-5.5); Sodium, Blood 141 mmol/L (136-145); Total Protein, Blood 5.9 g/dL (6.4-8.2)
[2018-03-11 04:51] LABS: Hematocrit 35.4 % (33.0-51.0); Hemoglobin 11.4 g/dL (11.5-16.0)
[2018-03-11 05:17] LABS: Magnesium, Blood 1.9 mg/dL (1.6-2.4)
[2018-03-11 05:18] LABS: Anion Gap 10 mmol/L (6-16); Blood Urea Nitrogen 22 mg/dL (8-24); Bun/Creatinine Ratio 9.9 (12.0-20.0); CO2, Blood 30 mmol/L (21-32); Calcium, Blood 7.4 mg/dL (8.5-10.1); Chloride, Blood 101 mmol/L (98-108); Creatinine, Blood 2.22 mg/dL (0.40-1.00); Glomerular Filtration Rate 24 (60-); Glucose, Blood 155 mg/dL (70-99); Potassium, Blood 3.6 mmol/L (3.5-5.5); Sodium, Blood 141 mmol/L (136-145)
[2018-03-12 05:26] LABS: Hematocrit 27.9 % (33.0-51.0); Hemoglobin 8.9 g/dL (11.5-16.0)
[2018-03-12 05:47] LABS: Albumin, Blood 1.7 g/dL (3.4-5.0); Anion Gap 8 mmol/L (6-16); Blood Urea Nitrogen 33 mg/dL (8-24); Bun/Creatinine Ratio 11.6 (12.0-20.0); CO2, Blood 27 mmol/L (21-32); Calcium, Blood 6.8 mg/dL (8.5-10.1); Chloride, Blood 101 mmol/L (98-108); Creatinine, Blood 2.84 mg/dL (0.40-1.00); Glomerular Filtration Rate 18 (60-); Glucose, Blood 67 mg/dL (70-99); Magnesium, Blood 1.7 mg/dL (1.6-2.4); Phosphorus, Blood 4.8 mg/dL (2.5-4.9); Potassium, Blood 4.8 mmol/L (3.5-5.5); Sodium, Blood 136 mmol/L (136-145)
[2018-03-13 05:22] LABS: Hematocrit 30.8 % (33.0-51.0); Hemoglobin 9.7 g/dL (11.5-16.0)
[2018-03-13 05:37] LABS: Albumin, Blood 1.6 g/dL (3.4-5.0); Anion Gap 7 mmol/L (6-16); Blood Urea Nitrogen 25 mg/dL (8-24); CO2, Blood 29 mmol/L (21-32); Calcium, Blood 6.7 mg/dL (8.5-10.1); Chloride, Blood 99 mmol/L (98-108); Creatinine, Blood 2.28 mg/dL (0.40-1.00); Glomerular Filtration Rate 23 (60-); Glucose, Blood 122 mg/dL (70-99); Magnesium, Blood 1.7 mg/dL (1.6-2.4); Potassium, Blood 4.2 mmol/L (3.5-5.5); Sodium, Blood 135 mmol/L (136-145)
[2018-03-14 04:49] LABS: Hematocrit 30.2 % (33.0-51.0); Hemoglobin 9.8 g/dL (11.5-16.0)
[2018-03-14 05:03] LABS: Magnesium, Blood 1.6 mg/dL (1.6-2.4)
[2018-03-14 05:04] LABS: Albumin, Blood 1.7 g/dL (3.4-5.0); Anion Gap 6 mmol/L (6-16); Blood Urea Nitrogen 28 mg/dL (8-24); Bun/Creatinine Ratio 11.7 (12.0-20.0); CO2, Blood 28 mmol/L (21-32); Calcium, Blood 6.8 mg/dL (8.5-10.1); Chloride, Blood 98 mmol/L (98-108); Creatinine, Blood 2.39 mg/dL (0.40-1.00); Glomerular Filtration Rate 22 (60-); Glucose, Blood 109 mg/dL (70-99); Phosphorus, Blood 3.3 mg/dL (2.5-4.9); Potassium, Blood 4.6 mmol/L (3.5-5.5); Sodium, Blood 132 mmol/L (136-145)
[2018-03-14] MEDS ORDERED: CLON.3TP TOP (12:15)
[2018-03-14] MEDS ORDERED: Novolog Fl100 UNIT/1 SC (12:26)
[2018-03-14] MEDS ORDERED: LOSA50 PO (12:34)
[2018-03-14] MEDS ORDERED: METO5A PO (12:34)
[2018-03-14] MEDS ORDERED: CIPR250 PO (12:36)
[2018-03-14] MEDS ORDERED: SPIR25 PO (12:36)
[2018-03-14 23:09] LABS: METANEPHRINE, UR 203 ug/L (Undefined); NORMETANEPHRINE, UR 429 ug/L (Undefined)
[2018-03-16 09:17] LABS: ALDOSTERONE <1.0 ng/dL (0.0-30.0)
== END 2018-03-14 12:58 | disposition home or self-care (01) | DRG 393 ==
LOC: ER 12:41 → PCU 17:49 → MEDS 03-10 12:06 → ENPENDDIS 03-14 10:00 → MEDS 03-14 12:58
PROVIDERS: Internal Medicine; Internal Medicine Nephrology; Physician Assistant
PROC: 5A1D70Z Performance of Urinary Filtration, Intermittent, Less than 6 Hours Per Day (ICD-10-PCS; principal; 2018-03-10)
DX: K55.039 Acute (reversible) ischemia of large intestine, extent unspecified (principal); N18.6 End stage renal disease; I12.0 Hypertensive chronic kidney disease with stage 5 chronic kidney disease or end stage renal disease; K52.9 Noninfective gastroenteritis and colitis, unspecified; I16.0 Hypertensive urgency; E87.70 Fluid overload, unspecified; E87.6 Hypokalemia; E83.39 Other disorders of phosphorus metabolism; E11.22 Type 2 diabetes mellitus with diabetic chronic kidney disease; E11.21 Type 2 diabetes mellitus with diabetic nephropathy; E11.40 Type 2 diabetes mellitus with diabetic neuropathy, unspecified; E11.649 Type 2 diabetes mellitus with hypoglycemia without coma; E11.43 Type 2 diabetes mellitus with diabetic autonomic (poly)neuropathy; K31.84 Gastroparesis; D63.1 Anemia in chronic kidney disease; I70.1 Atherosclerosis of renal artery; F17.200 Nicotine dependence, unspecified, uncomplicated; N20.0 Calculus of kidney; E78.5 Hyperlipidemia, unspecified; E89.0 Postprocedural hypothyroidism; K59.09 Other constipation; M54.5 Low back pain; G89.29 Other chronic pain; Z99.2 Dependence on renal dialysis; Z79.4 Long term (current) use of insulin; Z85.850 Personal history of malignant neoplasm of thyroid
CPT/HCPCS: 36415; 71045; 74176; 80053; 80069; 81050; 82010; 82272; 82947; 83036; 83735; 83835; 84100; 84132; 84443; 85014; 85018; 85025; 86850; 86900; 86901; 87507; 93975; 96361; 96365; 96375; 96376; 99285-25; C9113; J0360; J0744; J0881; J1630; J1644; J1815; J2405; J2550; J2765; J3010; J3480; J7030; J7060; J7120

== ENCOUNTER 2018-03-27 08:42 | Inpatient (IN) | payer MEDICARE, OTHER ==
[~2018-03-27] VITALS: Ht 152.4 cm; Wt 48.4 kg
[~2018-03-27 08:42] MED LIST changes: +CIPR250 PO; +CLON.3TP TOP; +LOSA50 PO; +METO5A PO; +Novolog Fl100 UNIT/1 SC; +SPIR25 PO
[2018-03-27 09:30] LABS: Calcium, Ionized (POC) 0.89 mmol/L (1.10-1.46); Chloride (POC) 89 mmol/L (98-108); Creatinine (POC) 3.9 mg/dL (0.6-1.0); Glucose (ISTAT POC) 179 mg/dL (70-99); Hemoglobin (POC) 10.2 g/dL (12.0-16.0); Potassium (POC) 5.1 mmol/L (3.5-5.5); Sodium (POC) 130 mmol/L (135-148); Total CO2 (POC) 33 mmol/L (21-32)
[2018-03-27 09:38] LABS: Base Excess Venous 9.6 mmol/L; Bicarbonate Venous 32.2 mmol/L (24.0-30.0); PCO2 Venous 49.7 mmHg (38-42); PO2 Venous 106 mmHg (38-42); pH Blood Venous 7.44 (7.34-7.37)
[2018-03-27 09:40] LABS: BASOPHILS ABSOLUTE AUTO 0.01 K/mm3 (0.00-0.23); BASOPHILS PERCENT AUTO 0 % (0-2); EOSINOPHILS ABSOLUTE AUTO 0.03 K/mm3 (0.00-0.68); EOSINOPHILS PERCENT AUTO 1 % (0-6); Hematocrit 29.4 % (33.0-51.0); Hemoglobin 9.5 g/dL (11.5-16.0); IMMATURE GRAN ABSOLUTE AUTO 0.02 K/mm3 (0.00-0.10); IMMATURE GRAN PERCENT AUTO 1 % (0-1); LYMPHOCYTES PERCENT AUTO 17 % (21-46); MONOCYTES ABSOLUTE AUTO 0.27 K/mm3 (0.16-1.47); MONOCYTES PERCENT AUTO 9 % (4-13); Mean Corpuscular HGB Conc 32.3 g/dL (31.5-36.5); Mean Corpuscular Volume 87 fL (80-100); Mean Platelet Volume 10.6 fL (9.1-12.4); NEUTROPHILS ABSOLUTE AUTO 2.15 K/mm3 (1.96-9.15); NEUTROPHILS PERCENT AUTO 72 % (41-73); Platelet Count 207 K/mm3 (150-400); RDW Coefficient Variation 15.3 % (11.7-14.2); RDW Standard Deviation 48.6 fL (35.1-46.3); Red Blood Cell Count 3.39 M/mm3 (3.80-5.20); White Blood Cell Count 2.98 K/mm3 (4.00-11.30)
[2018-03-27] MEDS ORDERED: LISI5 PO (10:04)
[2018-03-27] MEDS ORDERED: DOCU100 PO (10:05)
[2018-03-27 10:06] LABS: Albumin, Blood 2.1 g/dL (3.4-5.0); Albumin/Globulin Ratio 0.6 (0.8-1.8); Bilirubin, Total 0.6 mg/dL (0.1-1.0); Bun/Creatinine Ratio 16.7 (12.0-20.0); Calcium, Blood 7.7 mg/dL (8.5-10.1); Creatinine, Blood 3.71 mg/dL (0.40-1.00); Globulin, Blood 3.8 g/dL (2.2-4.0); Potassium, Blood 5.2 mmol/L (3.5-5.5); Total Protein, Blood 5.9 g/dL (6.4-8.2)
[2018-03-27] MEDS ORDERED: Prilosec Otc20 MG PO (10:06)
[2018-03-27] MEDS ORDERED: ONDA4 PO (10:08)
[2018-03-27] MEDS ORDERED: ROPI.25 PO (12:48)
[2018-03-27] MEDS ORDERED: Senna8.6 MG PO (12:49)
[2018-03-27] MEDS ORDERED: ESCI10 PO (12:51)
[2018-03-27] MEDS ORDERED: PREG75 PO (12:52)
[2018-03-27] MEDS ORDERED: MECL12.5 PO (12:53)
[2018-03-27] MEDS ORDERED: SIMV10 PO (12:55)
[2018-03-27] MEDS ORDERED: Oxycodone HCl20 M1 PO (19:22)
[2018-03-28 04:40] LABS: BASOPHILS ABSOLUTE AUTO 0.05 K/mm3 (0.00-0.23); BASOPHILS PERCENT AUTO 1 % (0-2); EOSINOPHILS ABSOLUTE AUTO 0.17 K/mm3 (0.00-0.68); EOSINOPHILS PERCENT AUTO 3 % (0-6); Hematocrit 36.1 % (33.0-51.0); Hemoglobin 11.6 g/dL (11.5-16.0); IMMATURE GRAN ABSOLUTE AUTO 0.01 K/mm3 (0.00-0.10); IMMATURE GRAN PERCENT AUTO 0 % (0-1); LYMPHOCYTES ABSOLUTE AUTO 0.76 K/mm3 (0.84-5.20); LYMPHOCYTES PERCENT AUTO 14 % (21-46); MONOCYTES ABSOLUTE AUTO 0.22 K/mm3 (0.16-1.47); MONOCYTES PERCENT AUTO 4 % (4-13); Mean Corpuscular HGB 28.8 pg (26.0-34.0); Mean Corpuscular HGB Conc 32.1 g/dL (31.5-36.5); Mean Platelet Volume 10.8 fL (9.1-12.4); NEUTROPHILS ABSOLUTE AUTO 4.38 K/mm3 (1.96-9.15); NEUTROPHILS PERCENT AUTO 78 % (41-73); Platelet Count 227 K/mm3 (150-400); RDW Coefficient Variation 15.9 % (11.7-14.2); RDW Standard Deviation 52.6 fL (35.1-46.3); Red Blood Cell Count 4.03 M/mm3 (3.80-5.20); White Blood Cell Count 5.59 K/mm3 (4.00-11.30)
[2018-03-28 04:41] LABS: Mean Corpuscular Volume 90 fL (80-100)
[2018-03-28 05:02] LABS: Albumin, Blood 1.9 g/dL (3.4-5.0); Anion Gap 14 mmol/L (6-16); Blood Urea Nitrogen 33 mg/dL (8-24); Bun/Creatinine Ratio 12.9 (12.0-20.0); CO2, Blood 29 mmol/L (21-32); Calcium, Blood 7.6 mg/dL (8.5-10.1); Chloride, Blood 97 mmol/L (98-108); Creatinine, Blood 2.55 mg/dL (0.40-1.00); Glomerular Filtration Rate 21 (60-); Glucose, Blood 302 mg/dL (70-99); Magnesium, Blood 2.4 mg/dL (1.6-2.4); Phosphorus, Blood 4.2 mg/dL (2.5-4.9); Potassium, Blood 4.1 mmol/L (3.5-5.5); Sodium, Blood 140 mmol/L (136-145)
[2018-03-28 09:54] LABS: Alanine Aminotransfer (ALT/SGP 470 U/L (12-78); Albumin/Globulin Ratio 0.5 (0.8-1.8); Alk Phos 877 U/L (50-136); Aspartate Aminotrans (AST/SGOT 648 U/L (12-37); Bilirubin, Direct <0.1 mg/dL (0.0-0.3); Bilirubin, Indirect Unable to Calculate mg/dL (0.1-0.7); Bilirubin, Total 0.3 mg/dL (0.1-1.0); Globulin, Blood 4.2 g/dL (2.2-4.0); Total Protein, Blood 6.1 g/dL (6.4-8.2)
[2018-03-29 03:56] LABS: BASOPHILS ABSOLUTE AUTO 0.04 K/mm3 (0.00-0.23); BASOPHILS PERCENT AUTO 1 % (0-2); EOSINOPHILS ABSOLUTE AUTO 0.16 K/mm3 (0.00-0.68); EOSINOPHILS PERCENT AUTO 3 % (0-6); Hemoglobin 9.9 g/dL (11.5-16.0); IMMATURE GRAN ABSOLUTE AUTO 0.01 K/mm3 (0.00-0.10); IMMATURE GRAN PERCENT AUTO 0 % (0-1); LYMPHOCYTES ABSOLUTE AUTO 1.05 K/mm3 (0.84-5.20); LYMPHOCYTES PERCENT AUTO 21 % (21-46); MONOCYTES ABSOLUTE AUTO 0.29 K/mm3 (0.16-1.47); MONOCYTES PERCENT AUTO 6 % (4-13); Mean Corpuscular HGB 28.9 pg (26.0-34.0); Mean Corpuscular HGB Conc 31.9 g/dL (31.5-36.5); Mean Corpuscular Volume 91 fL (80-100); Mean Platelet Volume 10.5 fL (9.1-12.4); NEUTROPHILS ABSOLUTE AUTO 3.41 K/mm3 (1.96-9.15); NEUTROPHILS PERCENT AUTO 69 % (41-73); Platelet Count 173 K/mm3 (150-400); RDW Coefficient Variation 16.2 % (11.7-14.2); RDW Standard Deviation 54.5 fL (35.1-46.3); Red Blood Cell Count 3.42 M/mm3 (3.80-5.20); White Blood Cell Count 4.96 K/mm3 (4.00-11.30)
[2018-03-29 04:15] LABS: Alanine Aminotransfer (ALT/SGP 357 U/L (12-78); Albumin, Blood 1.6 g/dL (3.4-5.0); Albumin/Globulin Ratio 0.4 (0.8-1.8); Alk Phos 803 U/L (50-136); Anion Gap 8 mmol/L (6-16); Aspartate Aminotrans (AST/SGOT 613 U/L (12-37); Bilirubin, Total 0.3 mg/dL (0.1-1.0); Blood Urea Nitrogen 28 mg/dL (8-24); Bun/Creatinine Ratio 12.5 (12.0-20.0); CO2, Blood 33 mmol/L (21-32); Calcium, Blood 7.2 mg/dL (8.5-10.1); Chloride, Blood 98 mmol/L (98-108); Creatinine, Blood 2.24 mg/dL (0.40-1.00); Globulin, Blood 3.6 g/dL (2.2-4.0); Glomerular Filtration Rate 24 (60-); Glucose, Blood 164 mg/dL (70-99); Phosphorus, Blood 2.5 mg/dL (2.5-4.9); Potassium, Blood 4.4 mmol/L (3.5-5.5); Sodium, Blood 139 mmol/L (136-145); Total Protein, Blood 5.2 g/dL (6.4-8.2)
[2018-03-29 09:57] LABS: Acetaminophen, Random <2.0 ug/mL (10.0-30.0)
[2018-03-29] MEDS ORDERED: OXYC10TA19 PO (16:58)
== END 2018-03-29 19:01 | disposition home or self-care (01) | DRG 917 ==
LOC: ER 08:42 → ERHOLD 08:43 → ICUE 09:39
PROVIDERS: Emergency Medicine; Internal Medicine; Internal Medicine Nephrology
PROC: 5A1D70Z Performance of Urinary Filtration, Intermittent, Less than 6 Hours Per Day (ICD-10-PCS; principal; 2018-03-27)
PROC: 5A1D70Z Performance of Urinary Filtration, Intermittent, Less than 6 Hours Per Day (ICD-10-PCS; 2018-03-28)
PROC: 5A1D70Z Performance of Urinary Filtration, Intermittent, Less than 6 Hours Per Day (ICD-10-PCS; 2018-03-29)
DX: T40.2X1A Poisoning by other opioids, accidental (unintentional), initial encounter (principal); G92 Toxic encephalopathy; N18.6 End stage renal disease; I12.0 Hypertensive chronic kidney disease with stage 5 chronic kidney disease or end stage renal disease; D70.9 Neutropenia, unspecified; D63.1 Anemia in chronic kidney disease; E11.22 Type 2 diabetes mellitus with diabetic chronic kidney disease
CPT/HCPCS: 36415; 71045; 74181; 76705; 80047; 80053; 80069; 82140; 82248; 82607; 82746; 82803; 82947; 83605; 83690; 83735; 83880; 84100; 85014; 85025; 94762; 96372; 96374; 96375; 99285-25; G0480; J0360; J1650; J2310

== ENCOUNTER 2018-08-24 15:27 | Inpatient (IN) | payer MEDICARE, OTHER ==
[~2018-08-24] VITALS: Ht 152.4 cm; Wt 54.3 kg
[~2018-08-24 15:27] MED LIST changes: +ESCI10 PO; +LISI5 PO; +MECL12.5 PO; +ONDA4 PO; +OXYC10TA19 PO; +Oxycodone HCl20 M1 PO; +Prilosec Otc20 MG PO; +Senna8.6 MG PO
[2018-08-24 17:15] LABS: Albumin/Globulin Ratio 0.5 (0.8-1.8); Bilirubin, Total 0.3 mg/dL (0.1-1.0); Bun/Creatinine Ratio 21.3 (12.0-20.0); Calcium, Blood 7.2 mg/dL (8.5-10.1); Creatinine, Blood 2.07 mg/dL (0.40-1.00); Globulin, Blood 3.8 g/dL (2.2-4.0); Potassium, Blood 5.1 mmol/L (3.5-5.5); Total Protein, Blood 5.8 g/dL (6.4-8.2)
[2018-08-24 17:16] LABS: Base Excess Venous -3.7 mmol/L; Bicarbonate Venous 21.3 mmol/L (24.0-30.0); PCO2 Venous 49.4 mmHg (38-42); PO2 Venous 138 mmHg (38-42); pH Blood Venous 7.28 (7.34-7.37)
[2018-08-24 17:31] LABS: Hematocrit 30.9 % (33.0-51.0); Hemoglobin 9.8 g/dL (11.5-16.0); Mean Corpuscular HGB Conc 31.7 g/dL (31.5-36.5); Mean Corpuscular Volume 95 fL (80-100); Mean Platelet Volume 11.4 fL (9.1-12.4); Platelet Count 164 K/mm3 (150-400); RDW Coefficient Variation 14.4 % (11.7-14.2); RDW Standard Deviation 49.5 fL (35.1-46.3); Red Blood Cell Count 3.27 M/mm3 (3.80-5.20)
[2018-08-24 18:05] LABS: Magnesium, Blood 1.9 mg/dL (1.6-2.4); Phosphorus, Blood 4.7 mg/dL (2.5-4.9)
[2018-08-24 18:26] LABS: BAND PERCENT MAN 4 % (0-8); BASOPHILS PERCENT MAN 0 % (0-2); EOSINOPHILS PERCENT MAN 0 % (0-6); LYMPHOCYTES ABSOLUTE MAN 0.46 K/mm3 (0.84-5.20); LYMPHOCYTES PERCENT MAN 8 % (21-46); MONOCYTES PERCENT MAN 0 % (4-13); NEUTROPHILS ABSOLUTE MAN 5.33 K/mm3 (1.96-9.15); SEG NEUTROPHILS PERCENT MAN 88 % (41-73); TOTAL CELLS COUNTED 100
[2018-08-24 18:50] LABS: U Amphetamine Screen Not Detected; U Barbituate Screen Not Detected; U Benzodiazapine Screen Not Detected; U Buprenorphine Screen Not Detected; U Cannabinoids Screen Not Detected; U Cocaine Screen Not Detected; U Methadone Screen Not Detected; U Methamphetamine Screen Not Detected; U Opiates Screen DETECTED; U Oxycodone Screen DETECTED; U Phencyclidine Screen Not Detected; U Propoxyphene Screen Not Detected
[2018-08-24 19:50] LABS: Glucose, Blood 1046 mg/dL (70-99)
[2018-08-24 21:09] LABS: Bun/Creatinine Ratio 20.6 (12.0-20.0); Calcium, Blood 7.1 mg/dL (8.5-10.1); Creatinine, Blood 2.18 mg/dL (0.40-1.00); Potassium, Blood 4.4 mmol/L (3.5-5.5)
--- NOTE | 2018-08-24 21:15 | NUR ---
HOSPITALIST NOTIFIED: RE CRITICAL VALUE BLOOD GLUCOSE LEVEL OF 1057 GIVEN VIA PHONE FROM LAB AT 2108. NEW ORDER TO ADMINISTER 5u REGULAR INSULIN X1 NOW AND TO KEEP INSULIN gtt AT CURRENT RATE OF 7u/hr. DON MÁRQUEZ GOING TO BEDSIDE TO ASSESS POSSIBILITY TO PLACE MIDLINE.
[2018-08-24 23:21] LABS: Glucose, Blood 954 mg/dL (70-99)
[2018-08-25 00:02] LABS: Bun/Creatinine Ratio 21.3 (12.0-20.0); Calcium, Blood 7.1 mg/dL (8.5-10.1); Creatinine, Blood 2.16 mg/dL (0.40-1.00)
--- NOTE | 2018-08-25 00:42 | NUR ---
HOSPITALIST CONFIRMATION: HOSPITALIST CHARITO IN DEPT. DISCUSSED PER HOSPITALIST ER NOTE THAT PT WILL BE DIALIZED TONIGHT BUT NO ORDER AND NO DR. SOSA CONSULT. CHARITO STATED TO PLACE DR. SOSA CONSULT. PT UPDATE GIVEN. NO NEW ORDERS AT THIS TIME.
[2018-08-25 01:33] LABS: Free Thyroxine 0.59 ng/dL (0.70-1.60)
[2018-08-25 01:44] LABS: Glucose, Blood 889 mg/dL (70-99); Triiodothyronine, Free <0.50 pg/mL (2.18-3.98)
[2018-08-25 01:44] LABS: PCO2 Arterial 53.3 mmHg (35-45); PO2 Arterial 61.4 mmHg (80-100); pH Blood Arterial 7.35 (7.35-7.45)
--- NOTE | 2018-08-25 01:58 | NUR ---
DR. SOSA: CALL FROM DR. SOSA APPRX 40 MINUTES AGO TO GET AN ABG STAT AND TO CALL HIM BACK WITH RESULTS. ABG RESULTS CALLED TO DR. SOSA NOW. DIALYSIS TO BE DONE, "TOMORROW".
[2018-08-25 02:36] LABS: Glucose, Blood 840 mg/dL (70-99)
[2018-08-25 03:31] LABS: Hemoglobin 8.4 g/dL (11.5-16.0); Mean Corpuscular HGB 29.9 pg (26.0-34.0); Mean Corpuscular HGB Conc 33.6 g/dL (31.5-36.5); Mean Platelet Volume 10.8 fL (9.1-12.4); Platelet Count 145 K/mm3 (150-400); RDW Coefficient Variation 14.1 % (11.7-14.2); Red Blood Cell Count 2.81 M/mm3 (3.80-5.20); White Blood Cell Count 4.13 K/mm3 (4.00-11.30)
[2018-08-25 03:39] LABS: Mean Corpuscular Volume 89 fL (80-100)
[2018-08-25 03:57] LABS: Bun/Creatinine Ratio 20.6 (12.0-20.0); Calcium, Blood 7.1 mg/dL (8.5-10.1); Creatinine, Blood 2.23 mg/dL (0.40-1.00); Potassium, Blood 3.8 mmol/L (3.5-5.5)
[2018-08-25 05:22] LABS: Magnesium, Blood 1.9 mg/dL (1.6-2.4)
[2018-08-25 05:43] LABS: Albumin, Blood 1.6 g/dL (3.4-5.0); Anion Gap 13 mmol/L (6-16); Blood Urea Nitrogen 46 mg/dL (8-24); Bun/Creatinine Ratio 20.8 (12.0-20.0); CO2, Blood 29 mmol/L (21-32); Chloride, Blood 87 mmol/L (98-108); Creatinine, Blood 2.21 mg/dL (0.40-1.00); Glomerular Filtration Rate 24 (60-); Glucose, Blood 697 mg/dL (70-99); Phosphorus, Blood 3.4 mg/dL (2.5-4.9); Potassium, Blood 3.7 mmol/L (3.5-5.5); Sodium, Blood 129 mmol/L (136-145)
--- NOTE | 2018-08-25 06:13 | NUR ---
BLADDER SCAN >999 cc. PT DENIES URGE TO VOID. WILL CALL DR. SOSA.
[2018-08-25 06:38] LABS: Hematocrit 24.1 % (33.0-51.0); Hemoglobin 8.2 g/dL (11.5-16.0)
--- NOTE | 2018-08-25 06:39 | NUR ---
ELLIS PLACED: DR. SOSA NOTIFIED RE: BLADDER SCAN RESULTS OF URINE >999cc IN BLADDER. DR. SOSA AT PT'S BEDSIDE AT APPRX 0625. PT AWAKE AND SPEAKING CLEARLY TO NO NEW ORDERS AT BEDSIDE.
[2018-08-25 07:04] LABS: Glucose, Blood 647 mg/dL (70-99)
--- NOTE | 2018-08-25 07:18 | NUR ---
BEDSIDE REPORT TO KIRSTEN MÁRQUEZ TO ASSUME CARE OF PT AT THIS TIME.
[2018-08-25 07:58] LABS: Bun/Creatinine Ratio 21.7 (12.0-20.0); Calcium, Blood 7.2 mg/dL (8.5-10.1); Creatinine, Blood 2.26 mg/dL (0.40-1.00); Potassium, Blood 3.6 mmol/L (3.5-5.5)
[2018-08-25 09:24] LABS: Source, Urine Catheter
[2018-08-25 09:34] LABS: Bilirubin, Urine Neg (Neg); Blood, Urine Neg (Neg); Glucose Qualitative, Urine 4+ (Neg); Ketones, Urine 2+ (Neg); Leukocyte Esterase, Urine Neg (Neg); Nitrite, Urine Neg (Neg); Protein, Urine 4+ (Neg); Urobilinogen, Urine NORM (Normal)
[2018-08-25 09:50] LABS: Appearance, Urine Clear (Clear); Color, Urine Yellow (P-Yellow)
[2018-08-25 09:52] LABS: Red Blood Cells, Urine 0-2 /hpf (0-2)
[2018-08-25 09:54] LABS: Bacteria Rare /hpf; Squamous Epithelial Cells Rare /hpf (Few)
[2018-08-25 11:14] LABS: Adenovirus Not Detected (NOT DETECT); Bordetella pertussis Not Detected (NOT DETECT); Chlamydophila pneumoniae Not Detected (NOT DETECT); Coronavirus 229E Not Detected (NOT DETECT); Coronavirus HKU1 Not Detected (NOT DETECT); Coronavirus NL63 Not Detected (NOT DETECT); Coronavirus OC43 Not Detected (NOT DETECT); Human Metapneumovirus Not Detected (NOT DETECT); Influenza A/2009-H1 Not Detected (NOT DETECT); Influenza A/H1 Not Detected (NOT DETECT); Influenza A/H3 Not Detected (NOT DETECT); Influenza B Not Detected (NOT DETECT); Mycoplasma pneumoniae Not Detected (NOT DETECT); Parainfluenza Virus 1 Not Detected (NOT DETECT); Parainfluenza Virus 2 Not Detected (NOT DETECT); Parainfluenza Virus 3 Not Detected (NOT DETECT); Parainfluenza Virus 4 Not Detected (NOT DETECT); Respiratory Syncytial Virus Not Detected (NOT DETECT)
--- NOTE | 2018-08-25 12:25 | NUR ---
Dialysis complete. Pt resting in bed, eyes closed, deep respirations. Report received from publishing specialist.
[2018-08-25 12:43] LABS: Human Rhinovirus/Enterovirus Detected (NOT DETECT); Influenza A Not Detected (NOT DETECT)
--- NOTE | 2018-08-25 13:05 | NUR ---
REASSESSMENT: PT HAD SOME HYPOTENSION THIS MORNING WITH DIALYSIS, BUT RECOVERED WITHIN AN HOUR OF DIALYSIS FINISHING. INSULIN DRIP TURNED OFF AT 1100 THIS MORNING, 1.5 HOURS FATER YESSY WAS GIVEN ADN SO FAR BLOOD SUGAR REMAINS IN CONTROL. SHE HAS BEEN SLEEPING SINCE DIALYSIS. SHE ATE BREAKFAST WHILE DIALYSIS WAS GOING AND TOLERATED IT WELL. HER CALLED AND WAS GIVEN AN UPDATE. CONTINUING TO MONITOR.
[2018-08-25] MEDS ORDERED: BRINTELLIX10 MG PO (13:26)
[2018-08-25] MEDS ORDERED: PANT40 PO (13:27)
[2018-08-25] MEDS ORDERED: METO5A PO (13:28)
--- NOTE | 2018-08-25 18:03 | NUR ---
SHIFT SUMMARY: PT GOT OFF OF THE INSULIN GTT THIS MORNING AND HAS REMAINED OFF. SHE IS EATING AND TOLERATING HER DIET. LUNGS CONTINUE TO BE DIM WITH SOME COARSENESS IN THE BASES, BUT OXYGEN WAS ABLE TO BE WEANED OFF. SHE IS SB, BP STABLE THIS AFTERNOON. PT'S DROPPED OFF HER MEDICATIONS AND HER MED REC WAS UPDATED. OTHERWISE NO CHANGES FROM EARLIER ASSESSMENTS.
--- NOTE | 2018-08-25 18:37 | NUR ---
PT IS COMPLAINING OF SEVERE ABDOMINAL AND BACK PAIN DESPITE RECEIVING HER OXYCODONE ABOUT 90 MINUTES AGO. OFFERED PT TYLENOL AND SHE REFUSED. INFORMED HER SHE WILL GET HER LYRICA AROUND [id number] AND PT SPECIFICALLY STATES THAT ANYTHING PILL WON'T HELP AND SHE WANTS SOMETHING IV. DR. BATISTA INFORMED OF THIS INCLUDING PT'S SPECIFIC REQUEST FOR IV MEDICATION AND ORDER RECEIVED FOR ONE TIME DOSE OF FENTANYL, SEE ORDERS. PT INFORMED THAT THIS IS JUST A 1 TIME DOSE FOR IV PAIN MEDICATION.
--- NOTE | 2018-08-25 21:44 | NUR ---
START OF SHIFT: BEDSIDE REPORT FROM KIRSTEN MÁRQUEZ. PT EATING EVENING MEAL AT THAT TIME. PT SOON AFTER C/O LUQ PAIN AND DESCRIBED IT 8/10 PAIN RADIATING TO HER BACK. PT STATED, "I THINK IT'S MY LUNG NOT MY HEART". PT FREQUENTLY REQUESTED MORE FENTANYL BUT REMINDED THAT THE PREVIOUS DOSE WAS A ONE-TIME DOSE. RHYTHM STRIP SHOWING CONTINUED PROLONG QT AND FLATTENED T WAVE. CHEM PANEL ALSO ORDERED, EKG DONE WITH NO NEW CHANGES FROM PREVIOUS EKG. PT REPOSITIONED AND ENCOURAGED TO TRY TO PASS GAS (BURP). PT'S PAIN NOT RELIEVED WITH THE ABOVE. WILL CALL HOSITALIST WITH RESULT ONCE LAB RESULTS ARE IN.
[2018-08-25 21:59] LABS: Bun/Creatinine Ratio 16.4 (12.0-20.0); Calcium, Blood 7.4 mg/dL (8.5-10.1); Creatinine, Blood 1.83 mg/dL (0.40-1.00); Magnesium, Blood 1.8 mg/dL (1.6-2.4); Potassium, Blood 3.6 mmol/L (3.5-5.5)
--- NOTE | 2018-08-25 22:19 | NUR ---
LABS: Na+ 132, KCL 3.6; BLOOD GLUCOSE 115; Mg+ 1.8. HOSPITALIST NOTIFIED CALLED ON ANOTHER PT IN DEPARTMENT AND WILL BE INFORMED OF THE ABOVE FOR THIS PT. ORAL MEDIATION AND INSULINS HELD AT THIS TIME IN RE TO THE ABOVE UNTIL PT SEEN BY HOSPTIALIST.
--- NOTE | 2018-08-25 22:37 | NUR ---
HOSPITALIST AT BEDSIDE.
--- NOTE | 2018-08-25 22:49 | NUR ---
HOSPTIATLIST GAVE VERBAL TO CONTINE TO GIVE COZAAR, REPEAT BLOOD GLUCOSE BEFORE GIVING EVENING DOSE OF LANTUS.
--- NOTE | 2018-08-25 22:55 | NUR ---
BLOOD GLUCOSE 131. HOSPTILIST TO BEDSIDE WITH VERBAL TO HOLD EVENING DOSE OF LANTUS. SEE NEW ORDERS FOR PAIN MEDICATION.
[2018-08-25 23:12] LABS: Alanine Aminotransfer (ALT/SGP 152 U/L (12-78); Albumin, Blood 2.3 g/dL (3.4-5.0); Albumin/Globulin Ratio 0.8 (0.8-1.8); Alk Phos 387 U/L (50-136); Aspartate Aminotrans (AST/SGOT 33 U/L (12-37); Bilirubin, Direct 0.1 mg/dL (0.0-0.3); Bilirubin, Indirect 0.1 mg/dL (0.1-0.7); Bilirubin, Total 0.2 mg/dL (0.1-1.0); Globulin, Blood 2.9 g/dL (2.2-4.0); Total Protein, Blood 5.2 g/dL (6.4-8.2); Troponin I <0.015 ng/mL (0.000-0.040)
[2018-08-26 04:32] LABS: Hematocrit 23.3 % (33.0-51.0); Hemoglobin 7.7 g/dL (11.5-16.0)
[2018-08-26 04:53] LABS: Albumin, Blood 2.1 g/dL (3.4-5.0); Anion Gap 9 mmol/L (6-16); Blood Urea Nitrogen 29 mg/dL (8-24); Bun/Creatinine Ratio 15.3 (12.0-20.0); CO2, Blood 32 mmol/L (21-32); Calcium, Blood 7.2 mg/dL (8.5-10.1); Chloride, Blood 88 mmol/L (98-108); Creatinine, Blood 1.89 mg/dL (0.40-1.00); Glomerular Filtration Rate 29 (60-); Glucose, Blood 100 mg/dL (70-99); Magnesium, Blood 1.8 mg/dL (1.6-2.4); Phosphorus, Blood 2.2 mg/dL (2.5-4.9); Potassium, Blood 4.1 mmol/L (3.5-5.5); Sodium, Blood 129 mmol/L (136-145)
--- NOTE | 2018-08-26 06:11 | NUR ---
ABD PAIN: PT CONTINUES TO AWAKEN C/O LUQ PAIN RADIATING TO BACK. PT SHEREEN AND NELLI RATING PAIN 8/10. PT STATES OXYCODONE NOT WORKING AND REQUESTS FENTANYL. FENTANYL ADMINISTERED. PT STATES PT'S COMFORTABLE PAIN IS A 5/10.
--- NOTE | 2018-08-26 07:14 | NUR ---
BEDSIDE REPORT TO JUJU MÁRQUEZ TO ASSUME CARE OF PT AT THIS TIME.
--- NOTE | 2018-08-26 07:28 | NUR ---
ASSUMED CARE REPORT FROM EZE Paul RN. PATIENT C/O PAIN IN LEFT SIDE. REPOSITIONED. YOGURT GIVEN SHE SAID SHE WAS HUNGRY. DOES NOT REPOSITION HERSELF.
--- NOTE | 2018-08-26 08:36 | NUR ---
MD VISIT DR. BATISTA IN. PATIENT REQUESTING PAIN "SHOT"
--- NOTE | 2018-08-26 10:14 | NUR ---
ELLIS CATHETER DC'D BY SALESPERSON NEW CARS. TAKEN TO SHOWER IN SHOWER CHAIR BY SALESPERSON NEW CARS.
[2018-08-26] MEDS ORDERED: INSULANPEN SC (10:32)
[2018-08-26] MEDS ORDERED: LEVFLO500 PO (10:39)
--- NOTE | 2018-08-26 16:00 | NUR ---
CONTACTED DR. BATISTA AND UPDATED ON PT RECOMMENDATION THAT PATIENT DELAY DISCHARGE UNTIL TOMORROW. ALSO ADVISED SHE WOULD NEED A GAIT BELT AND A WALKER [facility].
--- NOTE | 2018-08-26 17:42 | NUR ---
REPORT GIVEN TO WILLI GANDARA. PATIENT BEING TRANSFERRED TO [facility].
--- NOTE | 2018-08-26 18:12 | NUR ---
PATIENT TAKEN IN BED TO 358 BY TIFFANY Orozco CNA
--- NOTE | 2018-08-26 19:16 | NUR ---
PATIENT TRANSFER FROM ICU. ORIENTED TO ROOM. DISCHARGE TOMORROW WITH A WALKER, GAIT BELT AND HOME HEALTH
--- NOTE | 2018-08-27 07:46 | NUR ---
SHIFT SUMMARY PATIENT SLEPT OFF AND ON THROUGH THE NIGHT. REPORTED SEVERE PAIN MULTIPLE TIMES DURING THE SHIFT. MEDICATED WITH FENTANYL ABLE. PATIENT UNABLE TO DIVULGE INFORMATION REGARDING PAIN OTHER THAN LOCATION AND NUMBER. STATED THAT WHEN IT LASTS FOR TO LONG SHE HAS DIFFICULTY BREATHING. PATIENT REPORTS CHRONIC PAIN CONCERNS AT HOME BUT IS ON HOME MEDICATION REGIME WITH EXTRA DUE TO ADMITTANCE. DAY SHIFT AWARE OF INCREASED PAIN MEDICATION NEEDS.
--- NOTE | 2018-08-27 14:24 | NUR ---
PT NOT TOLERATING PAIN WELL. MEDICATED PER EMAR Q2H W/ FETNYL 25MG AND OXY Q6. KPAD ORDERED, NOT VERY HELPFUL. WILL CONTINUE TO APPLY COMFORT MEASURES TO PAIN WELL CONTINUE TO MEDICATE PER EMAR.
--- NOTE | 2018-08-27 18:36 | NUR ---
PT HAS DISCHARGE ORDER. PT IN EXTREME PAIN NOT CONTROLLED WITH MEDICATION. FETNYL DISCONTINUED PER ORDER. PT CRIES OUT IN PAIN. KPAD APPLIED HELPS A LITTLE BUT STILL PAINFUL. OTHER RELAXATION TEQUNIQUES TRETAVARES. CALLED AND STATES FETNYL CANCELLED AN PT SHOULD CONTINUE WITH HER NORMAL HOME MED OXY. WILL CONTINUE TO MONITOR AND APPLY COMFORT MEASURES AT THIS TIME. PT SHOULD BE GOING HOME TOMORROW.
--- NOTE | 2018-08-28 01:16 | NUR ---
BLADDER SCAN PT BLADDER SCANNED. GREATER TAHN 999 IN BLADDER. PT WAS ABLE TO GET UP AND VOID 200. PVR 655. DR. SOSA CALLED AND NOTIFIED. RECEIVED ORDER FOR STRAIGHT CATH X1. PT STRAIGHT CATH, PT TOLERATED WELL. REMOVED 500 MLS OF DARK YELLOW URINE.
--- NOTE | 2018-08-28 05:01 | NUR ---
SHIFT SUMMARY PT STRUGGLES WITH HER CHRONIC PAIN THIS SHIFT. SHE WAKES UP OFF AND ON T/ THE NIGHT WITH INTERMITTIMENT PAIN. MEDICATED WITH HER SCHEDULED ROXICODONE AND TYLENOL INBETWEEN. HEATING PAD ALSO IN PLACE. PT HAS HAD URINARY RETENTION THIS SHIFT. DR. SOSA CALLED AND NOTIFIED. STRAIGHT CATH X1 AND REMOVED 500 MLS. POSSIBLE DC TODAY. WILL CONTINUE TO MONITOR AND REPORT TO ONCOMING RN.
[2018-08-28 06:14] LABS: Hematocrit 29.6 % (33.0-51.0); Hemoglobin 9.6 g/dL (11.5-16.0)
[2018-08-28 06:34] LABS: Anion Gap 8 mmol/L (6-16); Blood Urea Nitrogen 22 mg/dL (8-24); Bun/Creatinine Ratio 12.6 (12.0-20.0); CO2, Blood 30 mmol/L (21-32); Calcium, Blood 7.4 mg/dL (8.5-10.1); Chloride, Blood 95 mmol/L (98-108); Creatinine, Blood 1.75 mg/dL (0.40-1.00); Glomerular Filtration Rate 32 (60-); Glucose, Blood 192 mg/dL (70-99); Magnesium, Blood 1.8 mg/dL (1.6-2.4); Phosphorus, Blood 1.8 mg/dL (2.5-4.9); Potassium, Blood 4.2 mmol/L (3.5-5.5); Sodium, Blood 133 mmol/L (136-145)
--- NOTE | 2018-08-28 18:24 | NUR ---
DISCHARGE SUMMARY PATIENT A&O X4. IV D/C, WNL. DISCHARGE INFORMATION, EDUCATION, AND MEDICATIONS REVIEWED. ALL PATIENT QUESTIONS ANSWERED. PATIENT LEFT BY WHEELCHAIR ESCORTED BY HER , BELONGINGS IN HAND.
== END 2018-08-28 17:21 | disposition home health service (06) | DRG 637 ==
LOC: ER 15:27 → ICUW 18:22 → MEDS 08-26 18:12 → ENPENDDIS 08-28 10:07 → MEDS 08-28 17:21
PROVIDERS: Emergency Medicine; Internal Medicine Nephrology; Nurse Practitioner Acute Care; ADMIT Family Medicine
PROC: 5A1D70Z Performance of Urinary Filtration, Intermittent, Less than 6 Hours Per Day (ICD-10-PCS; principal; 2018-08-25)
PROC: 5A1D70Z Performance of Urinary Filtration, Intermittent, Less than 6 Hours Per Day (ICD-10-PCS; 2018-08-26)
PROC: 5A1D70Z Performance of Urinary Filtration, Intermittent, Less than 6 Hours Per Day (ICD-10-PCS; 2018-08-27)
PROC: 5A1D70Z Performance of Urinary Filtration, Intermittent, Less than 6 Hours Per Day (ICD-10-PCS; 2018-08-28)
DX: E11.10 Type 2 diabetes mellitus with ketoacidosis without coma (principal); N18.6 End stage renal disease; J18.9 Pneumonia, unspecified organism; I12.0 Hypertensive chronic kidney disease with stage 5 chronic kidney disease or end stage renal disease; E87.2 Acidosis; E87.1 Hypo-osmolality and hyponatremia; E11.21 Type 2 diabetes mellitus with diabetic nephropathy; E11.43 Type 2 diabetes mellitus with diabetic autonomic (poly)neuropathy; K31.84 Gastroparesis; E87.5 Hyperkalemia; E83.39 Other disorders of phosphorus metabolism; E78.5 Hyperlipidemia, unspecified; G89.29 Other chronic pain; M54.5 Low back pain; D63.1 Anemia in chronic kidney disease; F17.210 Nicotine dependence, cigarettes, uncomplicated; Z99.2 Dependence on renal dialysis; Z85.850 Personal history of malignant neoplasm of thyroid; Z79.4 Long term (current) use of insulin; Z79.891 Long term (current) use of opiate analgesic; Z79.899 Other long term (current) drug therapy; Z88.1 Allergy status to other antibiotic agents
CPT/HCPCS: 36415; 36430; 36600; 51702; 71046; 80048; 80053; 80069; 80076; 81001; 82010; 82803; 82947; 83036; 83605; 83735; 83930; 84100; 84132; 84145; 84439; 84443; 84481; 84484; 85014; 85018; 85025; 85027; 86850; 86900; 86901; 86923; 87449; 87486; 87581; 87633; 87798; 93005; 93010; 94640; 94760; 96374; 97110; 97116; 97161; 97166; 97530; 97535; 99285-25; C1751; G8978; G8979; G8987; G8988; G8989; J0881; J1644; J1815; J1956; J2405; J3010; J7050; J7060; P9016; P9041; P9612

== ENCOUNTER 2018-09-13 15:04 | Observation (INO) | payer MEDICARE, OTHER ==
[~2018-09-13] VITALS: Ht 152.4 cm; Wt 56.3 kg
[~2018-09-13 15:04] MED LIST changes: +BRINTELLIX10 MG PO
[2018-09-13 15:30] LABS: BASOPHILS ABSOLUTE AUTO 0.05 K/mm3 (0.00-0.23); BASOPHILS PERCENT AUTO 1 % (0-2); EOSINOPHILS ABSOLUTE AUTO 0.05 K/mm3 (0.00-0.68); EOSINOPHILS PERCENT AUTO 1 % (0-6); Hematocrit 34.4 % (33.0-51.0); Hemoglobin 10.6 g/dL (11.5-16.0); IMMATURE GRAN ABSOLUTE AUTO 0.02 K/mm3 (0.00-0.10); IMMATURE GRAN PERCENT AUTO 0 % (0-1); LYMPHOCYTES ABSOLUTE AUTO 0.63 K/mm3 (0.84-5.20); LYMPHOCYTES PERCENT AUTO 9 % (21-46); MONOCYTES ABSOLUTE AUTO 0.36 K/mm3 (0.16-1.47); MONOCYTES PERCENT AUTO 5 % (4-13); Mean Corpuscular HGB 29.1 pg (26.0-34.0); Mean Corpuscular HGB Conc 30.8 g/dL (31.5-36.5); Mean Corpuscular Volume 95 fL (80-100); NEUTROPHILS ABSOLUTE AUTO 5.78 K/mm3 (1.96-9.15); NEUTROPHILS PERCENT AUTO 84 % (41-73); Platelet Count 230 K/mm3 (150-400); RDW Coefficient Variation 15.6 % (11.7-14.2); RDW Standard Deviation 53.7 fL (35.1-46.3); Red Blood Cell Count 3.64 M/mm3 (3.80-5.20); White Blood Cell Count 6.89 K/mm3 (4.00-11.30)
[2018-09-13] MEDS ORDERED: LOSA50 PO (15:35)
[2018-09-13] MEDS ORDERED: SIMV10 PO (15:37)
[2018-09-13 15:50] LABS: Albumin, Blood 2.4 g/dL (3.4-5.0); Albumin/Globulin Ratio 0.5 (0.8-1.8); Bilirubin, Total 0.4 mg/dL (0.1-1.0); Bun/Creatinine Ratio 19.3 (12.0-20.0); Calcium, Blood 7.9 mg/dL (8.5-10.1); Creatinine, Blood 2.95 mg/dL (0.40-1.00); Globulin, Blood 4.4 g/dL (2.2-4.0); Potassium, Blood 5.2 mmol/L (3.5-5.5); Total Protein, Blood 6.8 g/dL (6.4-8.2)
[2018-09-13 15:51] LABS: Troponin I 0.093 ng/mL (0.000-0.040)
[2018-09-13 16:54] LABS: Phosphorus, Blood 5.7 mg/dL (2.5-4.9)
[2018-09-13 22:22] LABS: Source, Urine Catheter
[2018-09-13 22:25] LABS: Bilirubin, Urine Neg (Neg); Blood, Urine 1+ (Neg); Glucose Qualitative, Urine 3+ (Neg); Ketones, Urine Neg (Neg); Leukocyte Esterase, Urine Neg (Neg); Nitrite, Urine Neg (Neg); Protein, Urine 4+ (Neg); Specific Gravity, Urine 1.005 (1.003-1.022); Urobilinogen, Urine NORM (Normal)
[2018-09-13 22:31] LABS: Appearance, Urine Clear (Clear); Color, Urine Yellow (P-Yellow)
[2018-09-13 22:32] LABS: Bacteria Few /hpf; Red Blood Cells, Urine 0-2 /hpf (0-2); Squamous Epithelial Cells Not Seen /hpf (Few)
--- NOTE | 2018-09-13 23:16 | NUR ---
ASSUMED CARE OF PT. VS STABLE. PT COMPLAINS OF PAIN IN HER BACK, CHEST, AND ABD. PT MEDICATED PER EMAR. DR SOSA NOTIFIED ABOUT BLADDER SCAN OF 990ML AND ELLIS CATHETER PLACED. DIALYSIS COMPLETE AT THIS TIME. DIALYSIS NURSE REPORTS 2L TAKEN OFF. LATONIA CALLED AND NEW ORDERS FOR PAIN MEDICATION RECEIVED. PT MEDICATED PER ORDERS. PT RESTING AT THIS TIME WITH OBVIOUS CHEST RISE AND FALL. NO COMPLAINTS AT THIS TIME. ELLIS PATENT AND DRAINING CLEAR YELLOW URINE. CALL LIGHT IN REACH.
[2018-09-13 23:38] LABS: Influenza A Negative (NEGATIVE); Influenza B Negative (NEGATIVE)
[2018-09-14 03:56] LABS: Hematocrit 31.1 % (33.0-51.0); Hemoglobin 9.6 g/dL (11.5-16.0); Mean Corpuscular HGB 29.4 pg (26.0-34.0); Mean Corpuscular HGB Conc 30.9 g/dL (31.5-36.5); Mean Corpuscular Volume 95 fL (80-100); Mean Platelet Volume 10.9 fL (9.1-12.4); Platelet Count 214 K/mm3 (150-400); RDW Coefficient Variation 15.4 % (11.7-14.2); Red Blood Cell Count 3.27 M/mm3 (3.80-5.20); White Blood Cell Count 5.41 K/mm3 (4.00-11.30)
[2018-09-14 04:13] LABS: Alanine Aminotransfer (ALT/SGP 117 U/L (12-78); Albumin, Blood 1.9 g/dL (3.4-5.0); Albumin/Globulin Ratio 0.5 (0.8-1.8); Alk Phos 502 U/L (50-136); Anion Gap 6 mmol/L (6-16); Aspartate Aminotrans (AST/SGOT 84 U/L (12-37); Bilirubin, Total 0.3 mg/dL (0.1-1.0); Blood Urea Nitrogen 37 mg/dL (8-24); Bun/Creatinine Ratio 17.5 (12.0-20.0); CO2, Blood 31 mmol/L (21-32); Calcium, Blood 7.2 mg/dL (8.5-10.1); Chloride, Blood 100 mmol/L (98-108); Creatinine, Blood 2.12 mg/dL (0.40-1.00); Globulin, Blood 3.6 g/dL (2.2-4.0); Glomerular Filtration Rate 25 (60-); Glucose, Blood 191 mg/dL (70-99); Magnesium, Blood 2.1 mg/dL (1.6-2.4); Potassium, Blood 4.5 mmol/L (3.5-5.5); Sodium, Blood 137 mmol/L (136-145); Total Protein, Blood 5.5 g/dL (6.4-8.2)
--- NOTE | 2018-09-14 06:06 | NUR ---
SHIFT SUMMARY PT ALERT AND ORIENTED. VS STABLE AT THIS TIME. PT COMPLAINS OF PAIN IN THE CHEST AND BACK THAT IS RELIEVED WITH MEDICATION ADMINISTRATION. PT HAS BEEN RESTING SINCE DIALYSIS TREATMENT. WOUND CARE PROVIDED TO BOTH FEET AND MEPILEX APPLIED. COCCYX AREA CLEANED AND MEPILEX APPLIED. LOTION APPLIED TO BOTH LEGS AND ABD. ELLIS CATH PATENT AND DRAINING. DR SOSA IN TO SEE PT THIS AM. NEW ORDERS PROVIDED. WILL CONTINUE TO MONITOR AND REPORT TO ONCOMING RN. CALL LIGHT IN REACH.
--- NOTE | 2018-09-14 17:29 | NUR ---
Initial Visit: Palliative Consult for symptom management and advance directive. Pt is A&O and reports constant pain in her chest, back, and extremities. FLACC score is 5/10. 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 She reports that her youngest son and significant other lives at home with her. Her other son lives next door and reports that her sons and significant other are supportive of her care needs. She reports that [facility] provides transportation for dialysis appointments. Listened to Pt as she expressed frustrations about the occasional inconvenience of the time it takes to travel to her appointments and the length of time for each dialysis appointment. She reports that she misses several appoinments routinely due to the inconvenience. Discussion was made about prioritizing her goals for care. Educated Pt on consequences of missed treatments. Pt reports her biggest concern at this time is pain management. Pt also reports experiencing depression and anxiety due to her health condition. Spoke with Pt's nurse and she is in agreement is coming up with a pain management goal. Plan is to discuss with Hospitalist and Dr Herrera about pain management options. Pt is agreeable to have family remind her about consequences of missed dialysis appoinments. Recommend referral for pysch/social counseling upon discharge. Pt will consider completing advance directive. Instructed Pt to contact palliative care for any questions or concerns on completing form. Will remain available.
--- NOTE | 2018-09-14 18:13 | NUR ---
SHIFT SUMMARY PT RESTING IN BED THROUGHOUT THE DAY. VSS. ALERT AND ORIENTED X3. C/O 6-8/10 CHEST AND BACK PAIN, MEDICATED WITH PRN PAIN MEDS. LUNG SOUNDS CLEAR, NSR RATE 68 PER TELE. RIGHT UPPER ARM FISTULA POSITIVE BRUIT AND THRILL. RIGHT CHEST DIALYSIS CATHETER DRSG CDI. ELLIS DRAINING YELLOW URINE. SKIN IS VERY DRY AND CRACKED. PT SLEEPING OFF AND ON TODAY, BUT WAKING UP AND MOANING IN PAIN, CONTINUES TO ASK FOR MORE PAIN MEDS, 1 ADDITIONAL DOSE PAIN MEDS GIVEN PER Steven JACOBSON PAD APPLIED TO BACK FOR COMFORT. WILL CONTINUE TO MONITOR.
--- NOTE | 2018-09-14 22:38 | NUR ---
ASSUMED CARE OF PATIENT AT APPROXIMATELY 1910 FROM CONNOR Xiao RN. PATIENT CONFUSED ON DATE; REPORTING THAT IT IS MORNING; UNSURE OF DATE; ALERT AND ORIENTED TO SELF, AND LOCATION. PATIENT SLEEPING AT SHIFT CHANGE; FALLS ASLEEP EASILY SHORTLY AFTER STAFF LEAVE ROOM. PATIENT REPORTS PAIN IN CHEST AND BACK; PATIENT REPORTS K PAD HELPS. NSR ON TELE; OXYGEN SATURATION ABOVE 90% ON ROOM AIR. RIGHT UPPER ARM FISTULA THRILL AND BRUIT POSITIVE; LEFT CHEST DIALYSIS CATHETER WNL. URINARY CATHETER DRAINING SMALL AMOUNTS OF HA COLORED URINE. SKIN IN DRY AND PEELING T/O; HEELS ELEVATED ON FOAM; LEGS ELEVATED ON PILLOWS; Q2H TURNS; MEPILEX IN PLACE ON COCCYX. PATIENT REQUESTS MULTIPLE SNACKS WHEN AWAKE. PIV S/L. PATIENT CURRENTLY SLEEPING IN BED; CALL LIGHT IN REACH; BED IN LOWEST POSISITON; BED ALARM ON; WILL CONTINUE TO MONITOR AND ASSESS UNTIL END OF SHIFT.
--- NOTE | 2018-09-15 00:05 | NUR ---
DR. SOSA WAS BEDSIDE WITH PATIENT; NO NEW ORDERS RECIEVED.
--- NOTE | 2018-09-15 02:51 | NUR ---
CALLED DR. BATISTA TO REPORT PATIENT WAKING UP APPROXIMATLEY EVERY 1 -2 HOURS AND MOANING OUT IN PAIN; STATING SHE IS IN EXTREME PAIN; ORDERS RECIEVED FOR ONE TIME DOSE.
[2018-09-15 04:17] LABS: Hematocrit 27.8 % (33.0-51.0); Hemoglobin 8.5 g/dL (11.5-16.0)
[2018-09-15 04:37] LABS: Albumin, Blood 1.8 g/dL (3.4-5.0); Anion Gap 7 mmol/L (6-16); Blood Urea Nitrogen 32 mg/dL (8-24); CO2, Blood 32 mmol/L (21-32); Calcium, Blood 7.3 mg/dL (8.5-10.1); Chloride, Blood 95 mmol/L (98-108); Creatinine, Blood 2.13 mg/dL (0.40-1.00); Glomerular Filtration Rate 25 (60-); Glucose, Blood 293 mg/dL (70-99); Phosphorus, Blood 3.6 mg/dL (2.5-4.9); Potassium, Blood 4.8 mmol/L (3.5-5.5); Sodium, Blood 134 mmol/L (136-145)
--- NOTE | 2018-09-15 06:13 | NUR ---
PATIENT WILL RECIEVE UNIT OF RBC W/ DIALYSIS TODAY. PATIENT WOULD WAKE UP EVERY 2-3 HOURS MOANING IN PAIN; REMIND PATIENT PAIN MEDICATION WAS ADMINISTERED PREVIOUSLY AND PATIENT WOULD FALL BACK ASLEEP WITHIN MINUTES. VSS. NO OTHER ACUTE CHANGES TO REPORT. WILL CONTINUE TO MONITOR AND ASSESS UNTIL END OF SHIFT.
[2018-09-15] MEDS ORDERED: CLON.1 PO (11:12)
[2018-09-15] MEDS ORDERED: CARV3.125 PO (11:12)
--- NOTE | 2018-09-15 11:28 | NUR ---
Assumed Care: Assumed care of pt at approx 0700. VSS. In no apparent sign of distress. Pt is A&Ox3. Calls appropriately. C/o pain. See shift assessment for detailed assessment. Pt receiving HD this AM. Plan is to DC pt after dialysis. Dr. Clemens at bedside this AM. Will DC salmon after dialysis per Dr. Fournier. Pt currently resting in bed with call light within reach. Requesting pain medication - lidocaine patch added to EMAR. Denies any further questions, complaints or requests at this time. Will continue to monitor.
--- NOTE | 2018-09-15 12:44 | NUR ---
PERMISSION TO ACCESS MEDICAL RECORDS PATIENT GAVE FLATWORK FINISHER PERMISSION TO REVIEW MEDICAL RECORDS ON THIS DATE.
--- NOTE | 2018-09-15 14:46 | NUR ---
Discharge Discharged at 1430. VSS. In no apparent sign of distress. Rechecked CBG prior to DC d/t pt concern because she felt that he CBG was either "too high or too low, one of the two". CBG stable. Medications held in pharmacy returned to pt. Pt denied any further questions at time of discharge. Pt educated on the importance of keeping up with her dialysis appointments as well as other discharge instructions provided to patient. Pt escorted with discharge instructions and belonging in hand via wheelchair and accompanied by .
== END 2018-09-15 14:40 | disposition home or self-care (01) ==
LOC: ER 15:04 → ERHOLD 15:05 → PCU 15:05
PROVIDERS: Emergency Medicine; Internal Medicine Nephrology; Nurse Practitioner Acute Care; ADMIT Hospitalist
DX: I16.0 Hypertensive urgency (principal); I12.0 Hypertensive chronic kidney disease with stage 5 chronic kidney disease or end stage renal disease; E11.22 Type 2 diabetes mellitus with diabetic chronic kidney disease; N18.6 End stage renal disease; Z99.2 Dependence on renal dialysis; Z79.4 Long term (current) use of insulin; R60.9 Edema, unspecified; R33.9 Retention of urine, unspecified; Z88.8 Allergy status to other drugs, medicaments and biological substances; Z72.0 Tobacco use; Z79.899 Other long term (current) drug therapy
CPT/HCPCS: 36415; 36430; 51702; 71045; 80053; 80069; 81001; 82947; 83735; 84100; 84484; 85014; 85018; 85025; 85027; 86850; 86900; 86901; 86923; 87804; 93005; 93010; 94640; 96372; 96374; 96375; 96376; 99285-25; G0257; G0378; J0360; J0881; J1644; J2405; J2930; J3010; P9016

== ENCOUNTER → 2018-09-21 | Outpatient (CLI) | payer MEDICARE, OTHER ==
[~2018-09-21] MED LIST changes: +CARV3.125 PO
[2018-09-21 15:23] LABS: U Amphetamine Screen Not Detected; U Barbituate Screen Not Detected; U Benzodiazapine Screen Not Detected; U Buprenorphine Screen Not Detected; U Cannabinoids Screen Not Detected; U Cocaine Screen Not Detected; U Methadone Screen Not Detected; U Methamphetamine Screen Not Detected; U Opiates Screen DETECTED; U Oxycodone Screen DETECTED; U Phencyclidine Screen Not Detected; U Propoxyphene Screen Not Detected
== END ==
LOC: LAB SHORT 14:37 → LAB 14:37
PROVIDERS: Internal Medicine Hematology & Oncology
DX: Z51.81 Encounter for therapeutic drug level monitoring (principal); Z79.899 Other long term (current) drug therapy
CPT/HCPCS: G0480

== ENCOUNTER 2018-09-30 20:53 | Inpatient (IN) | payer MEDICARE, OTHER ==
[~2018-09-30] VITALS: Ht 152.4 cm; Wt 48.6 kg
[2018-09-30 21:50] LABS: Hematocrit 39.6 % (33.0-51.0); Hemoglobin 12.1 g/dL (11.5-16.0); Mean Corpuscular HGB Conc 30.6 g/dL (31.5-36.5); Mean Corpuscular Volume 95 fL (80-100); Mean Platelet Volume 10.7 fL (9.1-12.4); Platelet Count 149 K/mm3 (150-400); RDW Coefficient Variation 15.4 % (11.7-14.2); RDW Standard Deviation 53.7 fL (35.1-46.3); Red Blood Cell Count 4.17 M/mm3 (3.80-5.20); White Blood Cell Count 12.92 K/mm3 (4.00-11.30)
[2018-09-30 22:22] LABS: Beta-hydroxybutyrate 19.9 mg/dL (0.2-2.8)
[2018-09-30 22:24] LABS: Albumin, Blood 2.2 g/dL (3.4-5.0); Albumin/Globulin Ratio 0.5 (0.8-1.8); Bilirubin, Total 0.5 mg/dL (0.1-1.0); Calcium, Blood 7.3 mg/dL (8.5-10.1); Creatinine, Blood 2.39 mg/dL (0.40-1.00); Globulin, Blood 4.3 g/dL (2.2-4.0); Potassium, Blood 5.4 mmol/L (3.5-5.5); Total Protein, Blood 6.5 g/dL (6.4-8.2)
[2018-09-30 22:28] LABS: BAND PERCENT MAN 8 % (0-8); BASOPHILS PERCENT MAN 0 % (0-2); EOSINOPHILS PERCENT MAN 0 % (0-6); LYMPHOCYTES ABSOLUTE MAN 0.12 K/mm3 (0.84-5.20); LYMPHOCYTES PERCENT MAN 1 % (21-46); MONOCYTES ABSOLUTE MAN 0.51 K/mm3 (0.16-1.47); MONOCYTES PERCENT MAN 4 % (4-13); NEUTROPHILS ABSOLUTE MAN 12.27 K/mm3 (1.96-9.15); SEG NEUTROPHILS PERCENT MAN 87 % (41-73); TOTAL CELLS COUNTED 100
[2018-09-30 22:45] LABS: Troponin I <0.015 ng/mL (0.000-0.040)
[2018-10-01 00:33] LABS: Bicarbonate Venous 24.3 mmol/L (24.0-30.0); PO2 Venous 45.6 mmHg (38-42); pH Blood Venous 7.34 (7.34-7.37)
[2018-10-01 00:35] LABS: Glucose (ISTAT POC) >700 mg/dL (70-99)
[2018-10-01 00:59] LABS: Glucose, Blood 940 mg/dL (70-99)
[2018-10-01 02:37] LABS: Glucose, Blood 925 mg/dL (70-99)
--- NOTE | 2018-10-01 03:14 | NUR ---
ASSUMED PT CARE AT 0000 PT ADMITTED S/P HYPERGLYCEMIA WITH BLOOD SUGAR 921 IN ED. PT ALERT AND ORIENTED X4; ABLE TO MAKE NEEDS KNOWN. PT'S APPEARANCE IS NON-HYGIENIC; DIRTY, DRY, FLAKY, AND SCALY SKIN. PT HAS NOTED WOUNDS TO BILATERAL HEELS AND COCCYX. WHEN PT WAS ASKED ABOUT HER HYGIENE SHE STATED SHE DOESN'T HAVE RUNNING WATER WHERE SHE LIVES RIGHT NOW, WHICH IS IN A TRAILER. PT STATES HOME HEALTH COMES TO CHANGE HER DRESSINGS TO HER HEELS. PT WEARING 3L OF OXYGEN VIA NC; PT STATES SHE DOESN'T WEAR OXYGEN AT HOME. AUDIBLE WHEEZES ARE NOTED. CLEAR TO BILATERAL UPPER LOBES; DIMINISHED TO BILATERAL LOWER LOBES WITH EXPIRATORY WHEEZES NOTED. PT HAS BEEN IN NSR WITH HR 70-80'S. SBP >180 UPON ARRIVAL; ADMINISTERED PRN LABETOLOL ORDERED; EFFECTIVE WITH SBP <160. PT HAS A FISTULA TO RIGHT UPPER ARM THAT SHE STATES IS ONLY A "HALF FISTULA" AND A HD CATHETER TO RIGHT UPPER CHEST. PT CLAIMS SHE HAD DIALYSIS YESTERDAY. 20G IV NOTED TO LEFT FOREARM WITH NS INFUSING AT 50MLS/HR. INSULIN GTT STARTED AT 3 UNITS/HR AND ANOTHER 20G PERIPHERAL IV STARTED TO LEFT UPPER ARM WELL. PT IS VERY DROWSY AND IS A POOR HISTORIAN.
[2018-10-01 04:19] LABS: Bun/Creatinine Ratio 25.5 (12.0-20.0); Calcium, Blood 7.1 mg/dL (8.5-10.1); Creatinine, Blood 2.39 mg/dL (0.40-1.00)
[2018-10-01 05:19] LABS: Glucose, Blood 810 mg/dL (70-99)
--- NOTE | 2018-10-01 05:37 | NUR ---
DR. SOSA CALLED CONSULT IN TO DR. SOSA. NEW ORDERS TO DRAW LABS TOMORROW MORNING; ADD PT TO HIS LIST; START ARNESP; AND BLADDER SCAN AND IF RESULTS ARE GREATER THAN 200 CALL HIM BACK.
[2018-10-01 06:17] LABS: Source, Urine Catheter
[2018-10-01 06:19] LABS: Bilirubin, Urine Neg (Neg); Blood, Urine 4+ (Neg); Glucose Qualitative, Urine 4+ (Neg); Ketones, Urine 1+ (Neg); Leukocyte Esterase, Urine 1+ (Neg); Nitrite, Urine Neg (Neg); Protein, Urine 4+ (Neg); Urobilinogen, Urine NORM (Normal)
[2018-10-01 06:20] LABS: Appearance, Urine Clear (Clear); Color, Urine Yellow (P-Yellow)
[2018-10-01 06:23] LABS: Glucose, Blood 790 mg/dL (70-99)
[2018-10-01 06:25] LABS: Bacteria Rare /hpf; Red Blood Cells, Urine 25-50 /hpf (0-2); Squamous Epithelial Cells Not Seen /hpf (Few)
--- NOTE | 2018-10-01 06:53 | NUR ---
END OF SHIFT SUMMARY PT CONTINUES WITH INSULIN GTT; TITRATED UP TO 5 UNITS/HR D/T BLOOD SUGAR >800; PT SEEMS TO BE TRENDING DOWN ADEQUATELY AND NOT TOO FAST. NS INFUSING AT 50MLS/HR. PT REMAINS ALERT AND ORIENTED; ABLE TO COMMUNICATE NEEDS. OXYGEN TITRATED DOWN TO 1L D/T OXYGEN SATURATIONS >98%. PT STATES SHE DOESN'T WEAR OXYGEN AT HOME. BLADDER SCANNED PT D/T ORDERS FROM DR. SOSA; PT RETAINING 1000MLS. DR. SOSA GAVE ORDERS TO PLACE ELLIS. PLACED ELLIS AND SENT UA TO LAB. WOUNDS TO BILATERAL FEET WERE CHANGED USING CALCIUM ALGINATE, AND WRAPPED WITH KERLEX. OLD PRESSURE WOUND TO COCCYX; BARRIER CREAM APPLIED AND PT REMAINED OFF BACK FOR RELIEF. HD CATH DRESSING TO RIGHT UPPER CHEST CHANGED USING STERILE TECHNIQUE D/T GAUZE DRESSING FALLING OFF. TEGADERM CHG DRESSING APPLIED AFTER SITE WAS CLEANSED WITH CHLORA-PREP. PT APPEARS COMFORTABLE AT THIS TIME; CALL LIGHT IN PLACE. PT ABLE TO MAKE NEEDS KNOWN.
[2018-10-01 07:00] LABS: Glucose (ISTAT POC) >700 mg/dL (70-99)
[2018-10-01 07:00] LABS: Glucose (ISTAT POC) >700 mg/dL (70-99)
[2018-10-01 07:34] LABS: Glucose, Blood 715 mg/dL (70-99)
[2018-10-01 09:25] LABS: Glucose (ISTAT POC) 601 mg/dL (70-99)
[2018-10-01 09:25] LABS: Glucose (ISTAT POC) 629 mg/dL (70-99)
--- NOTE | 2018-10-01 10:27 | NUR ---
PT ASSESSED AT 0730. PT SLEEPING, SOMULENT. AROUSES TO LIGHT SHAKE; FALLS ASLEEP DURING QUESTIONS AND WHILE ANSWERING QUESTIONS. PT DENIES C/O PAIN. TENDERNESS NOTED WITH ABD PALP. DENIES NAUSEA. PO MEDS HELD DUE TO SEDATION. POWERGLIDE PLACED W/O DIFF; PT SLEPT THROUGH ENTIRE PROCEDURE. INSULIN GTT AT 5UNITS/HR, BLOOD SUGAR VIA ISTAT HAS BEEN DECREASING AROUND 50 PER/HR. DR BLANCO IN TO SEE PT. DR BLANCO GIVEN UPDATE. WILL GIVE PO MEDS WHEN PT AWAKE AND ALERT. PT'S CALLED AND GIVEN UPDATE PER PT'S CONSENT
[2018-10-01 10:30] LABS: Glucose (ISTAT POC) 547 mg/dL (70-99)
[2018-10-01 11:30] LABS: Glucose (ISTAT POC) 500 mg/dL (70-99)
--- NOTE | 2018-10-01 12:23 | NUR ---
PT CONTINUES TO SLEEP, AROUSES TO LOUD VOICE AND TOUCH. BS UNDER 500 WITH INSULIN AT 5UNITS/HR. VSS
--- NOTE | 2018-10-01 13:47 | NUR ---
PT STARTING TO BECOME MORE AWAKE, AWAKENS TO ASK FOR PAIN MEDICATION. ZOFRAN GIVEN DURING BATH FOR NAUSEA AND WRETCHING; NO EMESIS. HD TO BEGIN SHORTLY.
[2018-10-01 13:50] LABS: Albumin, Blood 1.9 g/dL (3.4-5.0); Anion Gap 11 mmol/L (6-16); Blood Urea Nitrogen 64 mg/dL (8-24); Bun/Creatinine Ratio 24.8 (12.0-20.0); CO2, Blood 29 mmol/L (21-32); Calcium, Blood 7.1 mg/dL (8.5-10.1); Chloride, Blood 91 mmol/L (98-108); Creatinine, Blood 2.58 mg/dL (0.40-1.00); Glomerular Filtration Rate 20 (60-); Glucose, Blood 390 mg/dL (70-99); Phosphorus, Blood 3.9 mg/dL (2.5-4.9); Potassium, Blood 4.4 mmol/L (3.5-5.5); Sodium, Blood 131 mmol/L (136-145)
--- NOTE | 2018-10-01 15:57 | NUR ---
PT TO EAT, IF TOLERATED TO GIVE LANTUS 10UNITS SC AND TURN DOWN INSULIN GTT TO 2UNITS/HR. PT GIVEN SOME CLEAR LIQUIDS; TOLERATED
--- NOTE | 2018-10-01 17:30 | NUR ---
PT INCREASINGLY MORE SOMULENT. TOP DENTURES REMOVED, ORAL CARE DIFFICULT DUE TO PT'S LACK OF COOPERATION 2ND TO SEDATION. PT COUGHED ON SMALL AMT OF APPLE JUICE. VSS. WILL KEEP PT NPO UNTIL AWAKE AND ALERT. INSULIN GTT DC'D AND REPLACED W SLIDING SCALE. UPDATE GIVEN TO DR BLANCO. WILL CONTINUE TO MONITOR PT CLOSELY. HOB AT 45DEGREES. O2 AT 1L VIA N/C. 1800CC TAKEN OFF FROM HD.
[2018-10-01 20:07] LABS: U Amphetamine Screen Not Detected; U Barbituate Screen Not Detected; U Benzodiazapine Screen Not Detected; U Cocaine Screen Not Detected; U Methadone Screen Not Detected; U Methamphetamine Screen Not Detected; U Opiates Screen Not Detected
[2018-10-01 20:08] LABS: U Buprenorphine Screen Not Detected; U Cannabinoids Screen Not Detected; U Oxycodone Screen DETECTED; U Phencyclidine Screen Not Detected; U Propoxyphene Screen Not Detected
--- NOTE | 2018-10-01 20:32 | NUR ---
ASSUMED PT CARE AT 1915 PT ASLEEP IN BED. NS INFUSING VIA KAILA POWERGLIDE AT 50MLS/HR. URINE TOXICOLOGY OBTAINED DURING DAY RN AND SENT TO LAB. PT VERY SOMNOLENT T/O DAY PER REPORTING RN. OXYGEN VIA 1L WITH OXYGEN SATURATIONS AT 97%. PT APPEARS COMFORTABLE AT THIS TIME.
[2018-10-01 21:37] LABS: Albumin, Blood 1.8 g/dL (3.4-5.0); Anion Gap 8 mmol/L (6-16); Blood Urea Nitrogen 45 mg/dL (8-24); Bun/Creatinine Ratio 21.6 (12.0-20.0); CO2, Blood 32 mmol/L (21-32); Calcium, Blood 6.9 mg/dL (8.5-10.1); Chloride, Blood 94 mmol/L (98-108); Creatinine, Blood 2.08 mg/dL (0.40-1.00); Glomerular Filtration Rate 26 (60-); Glucose, Blood 104 mg/dL (70-99); Phosphorus, Blood 3.2 mg/dL (2.5-4.9); Potassium, Blood 4.3 mmol/L (3.5-5.5); Sodium, Blood 134 mmol/L (136-145)
[2018-10-02 03:37] LABS: BASOPHILS ABSOLUTE AUTO 0.02 K/mm3 (0.00-0.23); BASOPHILS PERCENT AUTO 0 % (0-2); EOSINOPHILS ABSOLUTE AUTO 0.03 K/mm3 (0.00-0.68); EOSINOPHILS PERCENT AUTO 1 % (0-6); Hematocrit 31.4 % (33.0-51.0); IMMATURE GRAN ABSOLUTE AUTO 0.01 K/mm3 (0.00-0.10); IMMATURE GRAN PERCENT AUTO 0 % (0-1); LYMPHOCYTES ABSOLUTE AUTO 0.45 K/mm3 (0.84-5.20); LYMPHOCYTES PERCENT AUTO 7 % (21-46); MONOCYTES ABSOLUTE AUTO 0.38 K/mm3 (0.16-1.47); MONOCYTES PERCENT AUTO 6 % (4-13); Mean Corpuscular HGB 29.3 pg (26.0-34.0); Mean Corpuscular HGB Conc 31.8 g/dL (31.5-36.5); Mean Platelet Volume 10.9 fL (9.1-12.4); NEUTROPHILS PERCENT AUTO 86 % (41-73); Platelet Count 105 K/mm3 (150-400); RDW Coefficient Variation 15.3 % (11.7-14.2); RDW Standard Deviation 51.8 fL (35.1-46.3); Red Blood Cell Count 3.41 M/mm3 (3.80-5.20); White Blood Cell Count 6.59 K/mm3 (4.00-11.30)
[2018-10-02 03:38] LABS: Mean Corpuscular Volume 92 fL (80-100)
[2018-10-02 03:50] LABS: Albumin, Blood 1.7 g/dL (3.4-5.0); Anion Gap 7 mmol/L (6-16); Blood Urea Nitrogen 48 mg/dL (8-24); Bun/Creatinine Ratio 21.2 (12.0-20.0); CO2, Blood 33 mmol/L (21-32); Calcium, Blood 6.6 mg/dL (8.5-10.1); Chloride, Blood 94 mmol/L (98-108); Creatinine, Blood 2.26 mg/dL (0.40-1.00); Glomerular Filtration Rate 24 (60-); Glucose, Blood 96 mg/dL (70-99); Magnesium, Blood 1.8 mg/dL (1.6-2.4); Phosphorus, Blood 3.4 mg/dL (2.5-4.9); Potassium, Blood 4.4 mmol/L (3.5-5.5); Sodium, Blood 134 mmol/L (136-145)
--- NOTE | 2018-10-02 05:42 | NUR ---
SHIFT SUMMARY PATIENT CONTINUES TO BE DROWSY THROUGHOUT THE NIGHT. PATIENT WILL MOAN TO LOUD VERBAL STIMULI WELL TOUCH. HOWEVER, PATIENT APPEARS TO BE BECOMING MORE ALERT THIS MORNING. PATIENT STILL VERY SOMULENT BUT HAS STARTED TO MOAN WITHOUT ANY STIMULI AND HAS BEEN ABLE TO RESPOND TO SEVERAL YES/NO QUESTIONS. PATIENT WILL NOT OPEN HER EYES THROUGH EVEN WHEN ASKED. AT APPROX 0215 PATIENT GIVEN HALF AN AMP OF D50 AND STARTED ON D5% FOR A BLOOD SUGAR OF 63. BLOOD SUGAR WAS 96 UPON RECHECK. HOWEVER BLOOD SUGAR CONTINUED TO TREND DOWN AND PATIENT WAS STARTED ON D10% AT APPROX 0445 FOR A BLOOD SUGAR OF [address] MCCLURE'S ORDERS[address] MCCLURE AWARE THAT PATIENT HAS BEEN SOMULENT THROUGHOUT THE SHIFT. WILL CONTINUE TO MONITOR BLOOD SUGAR Q2H PER ORDERS. PATIENT TURNED Q2H. VITAL SIGNS CHARTED. WILL CONTINUE TO MONITOR PATIENT AND REPORT TO ONCOMING RN.
--- NOTE | 2018-10-02 08:23 | NUR ---
CARE ASSUMED CARE AND REPORT ASSUMED FROM MICHAEL MÁRQUEZ. PT DROWSY AND VERY SLOW TO RESPOND WHEN PROMPTED. HAS DIFFICULTY OPENING EYES WHEN TALKING TO. PT IS ALERT/ORIENTED X 3. AFEBRILE. NSR, HR 70S. BP STABLE. D10 INFUSING AT 50 ML/HR PER ORDER. BLOOD SUGAR 79. ENCOURAGING PT TO DRINK JUICE AND EAT BREAKFAST. DENIES PAIN WHEN ASKED. LUNG SOUNDS DIMINISHED THROUGHOUT. PT WEARING 1L NC. WILL CONTINUE TO MONITOR BLOOD SUGARS CLOSELY.
--- NOTE | 2018-10-02 08:36 | NUR ---
ASPIRATION RISK PT TOO DROWSY TO EAT AND SWALLOW PILLS. WHEN GIVEN PILLS TO SWALLOW, PT WAS MOVING THEM AROUND IN MOUTH AND COULD NOT COMPREHEND FOLLOWING COMMANDS OF SWALLOWING. WILL CONTINUE TO MONITOR BLOOD SUGAR. WILL OBTAIN HEAD CT PER ORDER.
--- NOTE | 2018-10-02 11:55 | NUR ---
REASSESSMENT PT REMAINS DROWSY, CONFUSED, AND SOMNOLENT. MOANS OCCASSIONALLY. VSS. NSR 70S. TEMP 99.0. D10 CONTINUES TO INFUSED AT 50 ML/HR PER ORDER. PT TAKEN DOWN FOR HEAD CT SCAN AT 0900 AND TOLERATED WELL. WILL CONTINUE TO MONITOR PT AND BLOOD SUGAR CLOSELY.
--- NOTE | 2018-10-02 16:08 | NUR ---
REASSESSMENT D10 GTT TURNED OFF AT 1430 WITH BLOOD SUGAR OF 131. CURRENT BLOOD SUGAR 130. WHEN PROMPTED, PT AWAKENS AND ANSWERS QUESTIONS. BEDSIDE. VSS. PT TURNED. FENTANYL 50 MCG IVP GIVEN. WILL CONTINUE TO MONITOR.
--- NOTE | 2018-10-02 17:39 | NUR ---
SHIFT SUMMARY PT SOMNOLENT AND DROWSY MOST OF SHIFT. VSS ENTIRE SHIFT AND 1-2L O2 APPLIED AFTER FENTANYL ADMINISTRATION FOR SHORT TIME. FENTANYL GIVEN 2 X FOR PAIN CONTROL. D10 INFUSION DISCONTINUED THIS AFTERNOON ONCE BLOOD GUCOSE STABILIZED. PT NOW RECIEVING DIALYSIS. BEDSIDE. BEDBATH AND LINEN CHANGE COMPLETED. WILL GIVE BEDSIDE, HANDOFF REPORT TO STEPHANE MÁRQUEZ.
[2018-10-03 04:06] LABS: BASOPHILS ABSOLUTE AUTO 0.03 K/mm3 (0.00-0.23); BASOPHILS PERCENT AUTO 0 % (0-2); EOSINOPHILS PERCENT AUTO 0 % (0-6); Hematocrit 34.3 % (33.0-51.0); Hemoglobin 10.8 g/dL (11.5-16.0); IMMATURE GRAN ABSOLUTE AUTO 0.04 K/mm3 (0.00-0.10); IMMATURE GRAN PERCENT AUTO 1 % (0-1); LYMPHOCYTES PERCENT AUTO 3 % (21-46); MONOCYTES ABSOLUTE AUTO 0.23 K/mm3 (0.16-1.47); MONOCYTES PERCENT AUTO 3 % (4-13); Mean Corpuscular HGB Conc 31.5 g/dL (31.5-36.5); Mean Corpuscular Volume 92 fL (80-100); NEUTROPHILS ABSOLUTE AUTO 7.47 K/mm3 (1.96-9.15); NEUTROPHILS PERCENT AUTO 94 % (41-73); Platelet Count 100 K/mm3 (150-400); RDW Coefficient Variation 15.2 % (11.7-14.2); RDW Standard Deviation 51.3 fL (35.1-46.3); Red Blood Cell Count 3.73 M/mm3 (3.80-5.20); White Blood Cell Count 7.97 K/mm3 (4.00-11.30)
[2018-10-03 04:19] LABS: Albumin, Blood 1.8 g/dL (3.4-5.0); Anion Gap 9 mmol/L (6-16); Blood Urea Nitrogen 37 mg/dL (8-24); Bun/Creatinine Ratio 17.9 (12.0-20.0); CO2, Blood 32 mmol/L (21-32); Calcium, Blood 6.9 mg/dL (8.5-10.1); Chloride, Blood 92 mmol/L (98-108); Creatinine, Blood 2.07 mg/dL (0.40-1.00); Glomerular Filtration Rate 26 (60-); Glucose, Blood 141 mg/dL (70-99); Magnesium, Blood 1.7 mg/dL (1.6-2.4); Phosphorus, Blood 3.7 mg/dL (2.5-4.9); Potassium, Blood 4.2 mmol/L (3.5-5.5); Sodium, Blood 133 mmol/L (136-145)
--- NOTE | 2018-10-03 05:24 | NUR ---
SHIFT SUMMARY PATIENT CONTINUES TO BE DROWSY AND SOMULENT THROUGHOUT THE NIGHT. HOWEVER PATIENT MORE EASILY AROUSABLE TONIGHT THAN LAST NIGHT. PATIENT MOSTLY MOANED IN RESONSE TO VERBAL STIMULI OR TO TOUCH BUT PATIENT WAS ABLE TO ANSWER SEVERAL QUESTIONS LAST NIGHT WITH FULL SENTENCES. PATIENT MEDICATED FOR PAIN PER EMAR. BLOOD SUGAR MONITORED PER ORDERS. PATIENT TURNED Q2H. PATIENT'S AT THE BEDSIDE FOR SEVERAL HOURS AT THE BEGINNING OF THE SHIFT. PATIENT APPEARED TO SLEEP WELL THROUGHOUT MOST OF THE NIGHT. WILL CONTINUE TO MONITOR PATIENT AND REPORT TO ONCOMING RN.
--- NOTE | 2018-10-03 09:29 | NUR ---
ASSUMED CARE RECIEVED REPORT FROM SUPERVISOR RECORDS CHANGE. PT TRANSFERED TO PCU BED AND THEN TRANSPROTED TO DIALYSIS AT THIS TIME. NO S/SX OF ACUTE DISTRESS UPON TRANSFER TO DIALYSIS. WILL AWAIT PT ARRIVAL BACK TO PCU.
--- NOTE | 2018-10-03 09:35 | NUR ---
PT STABLE FOR TRANSFER TO PCU. REPORT CALLED TO DANNA MÁRQUEZ IN PCU. PT BELONGINGS TAKEN TO PCU 3. PT TRANSFERED VIA BED TO DIALYSIS AND PT TO GO TO PCU AFTER DIALYSIS.
--- NOTE | 2018-10-03 15:20 | NUR ---
ARRIVAL PT ARRIVED TO UNIT APPROX. 1230. PT CAME FROM DIALYSIS VIA BED. PT STABLE UPON ARRIVAL TO UNIT. VITAL SIGNS STABLE. REVIEWED ASSESSMENT AND FOUND FINDINGS TO REMAIN ACCURATE AT THIS TIME. ALTHOUGH PT ALERT AT THIS TIME. PT ABLE TO HOLD CONVERSATIONS, AND KEEP EYES OPEN WHILE TALKING. PT ALERT AND ORIENTED TO SELF, PLACE, AND SITUATION. PT ABLE TO FOLLOW DIRECTIONS TO PASS QUICK SWALLOW ASSESSMENT. PT WAS GIVEN LUNCH AND WAS ABLE TO EAT A SMALL PORTION OF THIS WITHOUT ASPIRATION OR ANY OTHER COMPLICATIONS. PT ABLE TO SWALLOW MEDICATIONS W/O DIFFICULTY. APPROX. 1330. PT ASKED TO BE COVERED UP SHE WAS EXTREMLY TIRED. PT WENT TO SLEEP. SINCE THIS PT HAS BEEN LETHARGIC AND EXCESSIVELY SLEEPY ALTHOUGH REMAINS AROUSABLE. ATTEMPTED TO HOLD A CONVERSATION WITH PT AND PT WAS UNABLE TO STAY AWAKE FOR THIS. ASKED PT TO OPEN EYES AND SHE WAS ABLE TO DO THIS BUT IMMEDIATELY CLOSED THEM. HELD NEXT MEDICATION DUE TO INABLE TO STAY AWAKE AND LETHARGIC STATE AT THIS TIME. WILL CONTINUE TO MONITOR.
--- NOTE | 2018-10-03 19:37 | NUR ---
SHIFT SUMMARY PT ABLE TO REST FOR SEVERAL HOURS. AFTER THIS PT AWOKE AND WAS ABLE TO SIT UP OPEN EYES AND HOLD A CONVERSATION WITHOUT FALLING ASLEEP. PT WAS ABLE TO PASS SWALLOW TEST AND WAS ABLE TO TAKE HER PILLS WITH APPLE SAUCE. SHORTLY AFTER HAVING SOME DINNER PT REPORTS BEING EXTREMLY TIRED AGAIN AND READY TO REST. CONTINUED TO MONIOTR BLOOD SUGARS PER ORDERS, THESE REMAINED STABLE. PT WOUND ON COCCYX HAD MEPILEX IN PLACE, WOUND ON HEELS HAS BANDAGE THAT REMAINS CLEAN, DRY AND INTACT AT THIS TIME. ELLIS REMAINS IN PLACE, PATENT, DRAINING AND INTACT. PT HAD INCREASED PAIN INTERMITENTLY WAS ABLE TO MAKE USE OF REPOSITIONING AND REDIRECTING TO HELP DECREASE PAIN. FAMILY HAS BEEN AT BEDSIDE INTERMITENTLY. SON REMAINS AT BEDSIDE AT THIS TIME. THIS AFTERNOON THERE WAS SOME DISAGREEMENT AMOUNGST FAMILY. I WAS HUNG UP IN ANOTHER ROOM AND UNABLE TO ADDRESS. PEER RN WAS ABLE TO TALK WITH FAMILY AND HELP GET SOME ISSUES TEMPORAIRLY RESOLVES. SECURITY CAME TO TALK WITH PT AND FAMILY TO ADDRESS SITUATION AND HELP GET THINGS SORTED OUT. A CONCULSION WAS DECIDED UPON AND FAMILY REPORTS BEING OKAY WITH FOLLOWING THIS PLAN. PT CURRENTLY IN BED RESTING, BED IN LOW POSITION, BED ALARM ON, CALL LIGHT IN REACH AND PT DENIES ANY NEEDS AT THIS TIME. WILL CONTINUE TO MONITOR UNTIL HANDOFF TO NIGHTSHIFT RN.
[2018-10-04 06:09] LABS: Hematocrit 31.3 % (33.0-51.0); Hemoglobin 9.8 g/dL (11.5-16.0); Mean Corpuscular HGB 28.8 pg (26.0-34.0); Mean Corpuscular HGB Conc 31.3 g/dL (31.5-36.5); Mean Corpuscular Volume 92 fL (80-100); Mean Platelet Volume 11.5 fL (9.1-12.4); Platelet Count 73 K/mm3 (150-400); RDW Coefficient Variation 15.4 % (11.7-14.2); White Blood Cell Count 5.18 K/mm3 (4.00-11.30)
[2018-10-04 06:25] LABS: Albumin, Blood 1.6 g/dL (3.4-5.0); Anion Gap 8 mmol/L (6-16); Blood Urea Nitrogen 30 mg/dL (8-24); Bun/Creatinine Ratio 14.5 (12.0-20.0); CO2, Blood 32 mmol/L (21-32); Calcium, Blood 7.2 mg/dL (8.5-10.1); Chloride, Blood 97 mmol/L (98-108); Creatinine, Blood 2.07 mg/dL (0.40-1.00); Glomerular Filtration Rate 26 (60-); Glucose, Blood 68 mg/dL (70-99); Magnesium, Blood 1.8 mg/dL (1.6-2.4); Phosphorus, Blood 2.9 mg/dL (2.5-4.9); Potassium, Blood 4.1 mmol/L (3.5-5.5); Sodium, Blood 137 mmol/L (136-145)
[2018-10-04 06:35] LABS: BAND PERCENT MAN 10 % (0-8); BASOPHILS PERCENT MAN 0 % (0-2); EOSINOPHILS ABSOLUTE MAN 0.05 K/mm3 (0.00-0.68); EOSINOPHILS PERCENT MAN 1 % (0-6); LYMPHOCYTES % ATYPICAL MANUAL 1 % (0-0); LYMPHOCYTES ABSOLUTE MAN 0.46 K/mm3 (0.84-5.20); LYMPHOCYTES PERCENT MAN 8 % (21-46); MONOCYTES PERCENT MAN 4 % (4-13); NEUTROPHILS ABSOLUTE MAN 4.45 K/mm3 (1.96-9.15); SEG NEUTROPHILS PERCENT MAN 76 % (41-73); TOTAL CELLS COUNTED 100
--- NOTE | 2018-10-04 08:29 | NUR ---
SHIFT SUMMARY PT LETHARGIC, WAKES FOR SHORT PERIODS OF TIME. ORIENTED. O2 VIA NC TITRATED TO 1L BY THIS AM; PT DENIES SOB. TELEMETRY IN PLACE; SR IN 80'S PER GUN PERFORATOR LOADER. BACK PAIN MANAGED PER EMAR AND WITH K-PAD TO BACK PT TOLERATED. DRESSINGS TO BLE'S CDI; BILAT HEELS FLOATED. ASPIRATION PRECAUTIONS; PILLS WITH APPLESAUCE. CALL LIGHT IN REACH. REPORT GIVEN TO DAY SHIFT RN.
--- NOTE | 2018-10-04 18:26 | NUR ---
SHIFT SUMMARY PT MORE LETHARGIC THIS MORNING OVER THIS AFTERNOON AND EVENING. REPORTS PAIN TO ABDOMEN AND THEN FALLS BACK ASLEEP. FAMILY IN AND OUT OF ROOM. TURNED FOR COMFORT. SKIN PALE. PROVIDED SPONGES FOR ORAL CARE AND COMFORT. TALKING MORE DAY HAS PROGRESSED AND ABLE TO STAY AWAKE FOR SHORT CONVERSATIONS. ASKING FOR FOOD BUT EXPLAINED NPO STATUS UNTIL REEVALUATED BY JOB PRINTER APPRENTICE.
[2018-10-05 03:49] LABS: BASOPHILS ABSOLUTE AUTO 0.01 K/mm3 (0.00-0.23); BASOPHILS PERCENT AUTO 0 % (0-2); EOSINOPHILS ABSOLUTE AUTO 0.03 K/mm3 (0.00-0.68); EOSINOPHILS PERCENT AUTO 1 % (0-6); Hematocrit 31.4 % (33.0-51.0); Hemoglobin 9.7 g/dL (11.5-16.0); IMMATURE GRAN ABSOLUTE AUTO 0.03 K/mm3 (0.00-0.10); IMMATURE GRAN PERCENT AUTO 1 % (0-1); LYMPHOCYTES ABSOLUTE AUTO 0.69 K/mm3 (0.84-5.20); LYMPHOCYTES PERCENT AUTO 11 % (21-46); MONOCYTES ABSOLUTE AUTO 0.44 K/mm3 (0.16-1.47); MONOCYTES PERCENT AUTO 7 % (4-13); Mean Corpuscular HGB 28.8 pg (26.0-34.0); Mean Corpuscular HGB Conc 30.9 g/dL (31.5-36.5); Mean Corpuscular Volume 93 fL (80-100); Mean Platelet Volume 11.7 fL (9.1-12.4); NEUTROPHILS ABSOLUTE AUTO 5.24 K/mm3 (1.96-9.15); NEUTROPHILS PERCENT AUTO 81 % (41-73); Platelet Count 64 K/mm3 (150-400); RDW Coefficient Variation 15.4 % (11.7-14.2); RDW Standard Deviation 53.2 fL (35.1-46.3); Red Blood Cell Count 3.37 M/mm3 (3.80-5.20); White Blood Cell Count 6.44 K/mm3 (4.00-11.30)
[2018-10-05 04:04] LABS: Albumin, Blood 1.6 g/dL (3.4-5.0); Anion Gap 8 mmol/L (6-16); Blood Urea Nitrogen 44 mg/dL (8-24); Bun/Creatinine Ratio 16.9 (12.0-20.0); CO2, Blood 30 mmol/L (21-32); Chloride, Blood 95 mmol/L (98-108); Glomerular Filtration Rate 20 (60-); Glucose, Blood 233 mg/dL (70-99); Magnesium, Blood 1.8 mg/dL (1.6-2.4); Phosphorus, Blood 3.9 mg/dL (2.5-4.9); Potassium, Blood 4.4 mmol/L (3.5-5.5); Sodium, Blood 133 mmol/L (136-145)
--- NOTE | 2018-10-05 05:27 | NUR ---
SHIFT SUMMARY PT ALERT AND ORIENTED THIS SHIFT. VS STABLE. CBG TAKEN Q4H HAVE BEEN STABLE. D5 WITH 1/2NS INF PER ORDERS. PT COMPLAINED OF PAIN THIS SHIFT 03/15 IN UPPER ABD. PT WAS NPO DUE TO SPEECH THERAPY UNABLE TO EVALUATE. PT MUCH MORE ALERT THAN BEGINNING OF SHIFT. SWALLOW EVAL DONE THIS SHIFT AND ORAL PAIN MEDICATION PROVIDED WITH APPLESAUCE. PT TITRATED TO ROOM AIR WITH SATS >92%. PT ASSISTED WITH REPOSITIONINGS NEEDED. PT HAS WOUNDS ON BOTH FEET AND COCCYX SEE PICTURES IN CHART. PT DENIES ANY PAIN AT THIS TIME. PT STABLE AT THIS TIME. WILL CONTINUE TO MONITOR AND REPORT TO ONCOMING RN. CALL LIGHT IN REACH.
--- NOTE | 2018-10-05 08:30 | NUR ---
NURSING PCU DAYSHIFT: Assumed care of pt at approx 0700. Oriented this a.m., lethargic, arouses to verbal stimuli, cooperative w/care. C/O 5/10 chronic epigastric discomfort. Skin is fragile, back is scaling/peeling, mepilex to coccyx, redness to b/l heels. General weakness noted, c/o numbness/tingling of all ext's. Tele in place, NSR, no c/o CP/pressure, SBP 150's, no noted edema. L/S w/fine bibasilar crackles, respirations shallow, occ moist/MERCHANT BANKER cough, O2 sat stable on RA. Abd SNT, BT+, FC w/stat lock in place and draining well. PIV x1, PG in place w/D5 infusing at 50cc/hr. Spouse currently at bedside, update provided, plan of care discussed. PMD at bedside, new d/o received. Bedside swallow assessment completed by this RN, no s/s of aspiration noted, ADA diet order placed. Pt has shown improvement from prev day as per family, currently sitting up in bed having breakfast, tolerating well. No s/s of acute distress, call light in reach, cont to monitor for changes.
--- NOTE | 2018-10-05 11:37 | NUR ---
NURSING PCU DAYSHIFT TRANSFER SUMMARY: No acute changes noted t/o the a.m. Seen by PMD, changed to medical status w/o tele. Worked w/P.T., tolerated fairly well though c/o chronic pain w/standing and repositioning. Medical floor bed assignment received, awaiting call from accepting RN to provide report. Pt is currently in HD, will xfer to medical unit when HD is complete. Belongings and meds have been xferred to med fl room assignment. Call placed to spouse.
[2018-10-05 13:24] LABS: Vancomycin, Random 5.9 ug/mL
--- NOTE | 2018-10-05 16:20 | NUR ---
SHIFT SUMMARY PATIENT PCU TRANSFER AFTER LUNCH. PATIENT MEDICATED FOR PAIN X 1. NO COMPLAINTS OF SHORTNESS OF BREATH OR NAUSEA. PATIENT VISITING WITH FAMILY AND RESTING THIS AFTERNOON. CALL LIGHT IN REACH, WILL CONTINUE TO MONITOR.
--- NOTE | 2018-10-06 04:43 | NUR ---
SHIFT SUMMARY PT WAS SOMNOLENT AT BEGINNING OF SHIFT. PT WAS WITH PT LATE INTO THE SHIFT. PT HAS BEEN REQUESTING FOR HELP THROUGHOUT THE REMAINDER OF THE SHIFT. WHEN ASKED WHAT SHE NEEEDS PT STATES NOTHING. PT ALSO HAS BEEN SAYING "I CAN'T DO IT!". PT IS CONFUSED AT TIMES AND THINKS SHE IS AT HOME IN HER BEDROOM. PT ALSO IS ABLE AT TIMES TO STATE THAT SHE IS AT [facility], [place], OR. PT HAD NO ACUTE ISSUES NOTED. PT HAD NO COMPLAINTS. PT CURRENTLY BREATHING EASY WITH CALL LIGHT IN REACH.
[2018-10-06 06:16] LABS: BASOPHILS ABSOLUTE AUTO 0.02 K/mm3 (0.00-0.23); BASOPHILS PERCENT AUTO 0 % (0-2); EOSINOPHILS ABSOLUTE AUTO 0.11 K/mm3 (0.00-0.68); EOSINOPHILS PERCENT AUTO 2 % (0-6); Hematocrit 30.6 % (33.0-51.0); Hemoglobin 9.7 g/dL (11.5-16.0); IMMATURE GRAN ABSOLUTE AUTO 0.05 K/mm3 (0.00-0.10); IMMATURE GRAN PERCENT AUTO 1 % (0-1); LYMPHOCYTES ABSOLUTE AUTO 0.72 K/mm3 (0.84-5.20); LYMPHOCYTES PERCENT AUTO 12 % (21-46); MONOCYTES ABSOLUTE AUTO 0.32 K/mm3 (0.16-1.47); MONOCYTES PERCENT AUTO 5 % (4-13); Mean Corpuscular HGB 29.2 pg (26.0-34.0); Mean Corpuscular HGB Conc 31.7 g/dL (31.5-36.5); Mean Corpuscular Volume 92 fL (80-100); Mean Platelet Volume 11.4 fL (9.1-12.4); NEUTROPHILS ABSOLUTE AUTO 4.69 K/mm3 (1.96-9.15); NEUTROPHILS PERCENT AUTO 79 % (41-73); Platelet Count 61 K/mm3 (150-400); RDW Coefficient Variation 15.2 % (11.7-14.2); RDW Standard Deviation 51.6 fL (35.1-46.3); Red Blood Cell Count 3.32 M/mm3 (3.80-5.20); White Blood Cell Count 5.91 K/mm3 (4.00-11.30)
[2018-10-06 06:33] LABS: Albumin, Blood 1.5 g/dL (3.4-5.0); Anion Gap 8 mmol/L (6-16); Blood Urea Nitrogen 42 mg/dL (8-24); CO2, Blood 31 mmol/L (21-32); Chloride, Blood 96 mmol/L (98-108); Creatinine, Blood 2.47 mg/dL (0.40-1.00); Glomerular Filtration Rate 21 (60-); Glucose, Blood 132 mg/dL (70-99); Magnesium, Blood 1.8 mg/dL (1.6-2.4); Potassium, Blood 4.1 mmol/L (3.5-5.5); Sodium, Blood 135 mmol/L (136-145)
[2018-10-06 11:57] LABS: Vancomycin, Random 8.7 ug/mL
--- NOTE | 2018-10-06 16:55 | NUR ---
Initial visit this afternoon: Palliative care consult for goals of care. Pt resting in bed upon arrival and appears comfortable. She is somnolent and attempts to drift off to sleep several times throughout the visit. She reports a tolerable pain level of 1/10. Pt's life parnter Lanrdy is present during visit. Engaged in therapeutic conversation with Pt and Landry talking about their sons and granddaughters. Attempted to discuss and educate on each section of POLST but was difficult with Pt's mentation. Instructed Landry that palliative care will follow up tomorrow or the next day when the Pt is more alert. Spoke with Dr Oconnor earlier in the day before Pt visit and she recommended having a conversation about Pt completing a POLST. Plan to discuss POLST further when Pt is more alert and to discuss any other concerns she may have. Will remain available.
--- NOTE | 2018-10-06 19:04 | NUR ---
SHIFT SUMMARY PT LETHARGIC THIS MORNING, UNABLE TO GET HER TO WAKE UP ENOUGH FOR PO INTAKE PRIOR TO HER HD RUN AT 0900. AFTER 1130 WHEN SHE CAME BACK TO THE FLOOR, SHE WAS MORE ROUSABLE AND ABLE TO TAKE IN SOME PO (VERY POOR APPETITE, FEEDER). DESTINEY COMPLAINED OF SLIGHT PAIN THIS SHIFT 1/1O LEVEL, BUT REPOSITIONING WORKED WELL AND SHE FELL BACK ASLEEP QUICKLY. ORIENTED TO HOSPITAL, BUT UNABLE TO STATE YEAR OR CITY OR WHO WAS JUST IN THE ROOM. ONE UCLER ON EACH HEEL, ANTIBIOTIC OINTMENT APPLIED AND HEEL DRESSINGS WITH FLOATING HEELS. COCCYX ULCER, MEPILEX IN PLACE, Q2 TURNS DONE. LEGS VERY DRY, LOTION APPLIED X2 TODAY TO LEGS AND ARMS. UP TO CHAIR WITH AO1-2 TODAY FOR HALF HOUR WITH GAIT BELT. /SO AT BEDSIDE FOR MOST OF THE DAY. ELLIS REMOVED AT 6PM, [facility]. CBGS WNL. YELLS OUT OCCASIONALLY BUT REDIRECTABLE. TM
--- NOTE | 2018-10-07 03:12 | NUR ---
PT BLADDER SCANNED, 178 ML PRESENT.
[2018-10-07 04:51] LABS: BASOPHILS ABSOLUTE AUTO 0.02 K/mm3 (0.00-0.23); BASOPHILS PERCENT AUTO 0 % (0-2); EOSINOPHILS PERCENT AUTO 1 % (0-6); Hematocrit 29.7 % (33.0-51.0); Hemoglobin 9.3 g/dL (11.5-16.0); IMMATURE GRAN ABSOLUTE AUTO 0.04 K/mm3 (0.00-0.10); IMMATURE GRAN PERCENT AUTO 1 % (0-1); LYMPHOCYTES ABSOLUTE AUTO 0.75 K/mm3 (0.84-5.20); LYMPHOCYTES PERCENT AUTO 10 % (21-46); MONOCYTES ABSOLUTE AUTO 0.37 K/mm3 (0.16-1.47); MONOCYTES PERCENT AUTO 5 % (4-13); Mean Corpuscular HGB 28.9 pg (26.0-34.0); Mean Corpuscular HGB Conc 31.3 g/dL (31.5-36.5); Mean Corpuscular Volume 92 fL (80-100); Mean Platelet Volume 11.4 fL (9.1-12.4); NEUTROPHILS ABSOLUTE AUTO 5.94 K/mm3 (1.96-9.15); NEUTROPHILS PERCENT AUTO 82 % (41-73); Platelet Count 55 K/mm3 (150-400); RDW Coefficient Variation 15.2 % (11.7-14.2); RDW Standard Deviation 52.1 fL (35.1-46.3); Red Blood Cell Count 3.22 M/mm3 (3.80-5.20); White Blood Cell Count 7.22 K/mm3 (4.00-11.30)
--- NOTE | 2018-10-07 04:53 | NUR ---
SHIFT SUMMARY PT HAD SIMILAR SHIFT TO NIGHT BEFORE. PT HAD GOOD BEGINNING OF SHIFT UNTIL LEFT FOR THE NIGHT. PT CONTINUED TO YELL OUT FOR HELP. PT WOULD STATE SHE DOES NOT MEAN TO YELL AND APOLGIZES. PT COMPLAINED OF ABD DISCOMFORT AND TX PER EMAR. PT WAS BLADDER SCANNED AND WAS FOUND NOT TO BE RETAINING. PT HAS NOT SLEPT MUCH AND CONTINUES TO YELL OUT. CALL LIGHT IS IN REACH AND BED ALARM ON.
[2018-10-07 05:04] LABS: Albumin, Blood 1.5 g/dL (3.4-5.0); Anion Gap 7 mmol/L (6-16); Blood Urea Nitrogen 39 mg/dL (8-24); Bun/Creatinine Ratio 16.9 (12.0-20.0); CO2, Blood 32 mmol/L (21-32); Calcium, Blood 6.9 mg/dL (8.5-10.1); Chloride, Blood 97 mmol/L (98-108); Creatinine, Blood 2.31 mg/dL (0.40-1.00); Glomerular Filtration Rate 23 (60-); Glucose, Blood 182 mg/dL (70-99); Magnesium, Blood 1.7 mg/dL (1.6-2.4); Phosphorus, Blood 2.3 mg/dL (2.5-4.9); Potassium, Blood 4.2 mmol/L (3.5-5.5); Sodium, Blood 136 mmol/L (136-145)
[2018-10-07 12:06] LABS: Vancomycin, Random 11.2 ug/mL
--- NOTE | 2018-10-07 15:56 | NUR ---
Pt is getting new IV for clinimix at time of visit. I came back to the room for a visit on request of Dr. Angelo. She reports that she has just talked to the patient and family; has questions about hospice. is friendly, seems upset. She has just gotten the news that pt has cancer and has declined [or does not have] available treatments. Reviewed with . She seems like she does not have enough time; she asks for social media marketing specialist to discuss discharge with hospice. She was hoping that the patient would be able to go to rehab to get stronger since she is unable to take care of him at home by herself. Call placed to Minnie, workforce planner. When Minnie was finished, the left the hospital quickly. She may have found it difficult to talk about this matter so soon after hearing news that her is dying. Will plan on following up with this family tomorrow.
--- NOTE | 2018-10-07 16:17 | NUR ---
SHIFT SUMMARY PATIENT HAS CALLED OUT TODAY. SHE IS HYPERSOMNOLENT AND DOES NOT DO MUCH FOR HERSELF AT THIS TIME. WILL MONITOR FOR CHANGES. SHE DID HAVE DIALYSIS TODAY, HER IV AND POWERGLIDE BOTH WORK. WILL ASSESS FOR CHANGES OF HER WOUNDS.
--- NOTE | 2018-10-07 16:17 | NUR ---
Spoke with patient and SO. Patient is sitting up at the side of the bed. SO is encouraging her. Pt reports 8/10 pain, nurse notified. Spoke to SO, Landry. He states that he has the POLST document from the Palliative Nurse yesterday. He has not filled it out yet, but he reports that he will. Review interventions for life sustaining measures with Landry. Pt is oriented, however, does not have much to say and appears weak and frail. After discussion, Landry requests my recommendation. My recommendation, I tell him, is to at least chose NO CPR. Discussed effects of chest compressions on individuals - instructed that these chest compressions would be vigorous and traumatic and would not be good for someone as frail as Josey. He verbalizes understanding. Will return to the room again to see if they are ready to fill the POLST out to completion.
--- NOTE | 2018-10-08 04:42 | NUR ---
SHIFT SUMMARY PT HAS HOLLERED OUT MUCH OF THE SHIFT, DIFFICULT TO REDIRECT. PT MEDICATED FOR PAIN WITH ORAL PAIN MED AND ALSO TOPICAL PATCHES. PT CONTINUED TO HOLLER OUT, REQUESTING CIGARETTES AND A CARDIAC TECHNOLOGIST, UNABLE TO REDIRECT PT. PT TRYING TO SWING LEGS OUT OF THE BED SEVERAL TIMES, SETTING OFF BED ALARM. NO ACUTE CHANGES NOTED, WILL CONTINUE TO MONITOR.
[2018-10-08 05:20] LABS: Albumin, Blood 1.7 g/dL (3.4-5.0); Anion Gap 10 mmol/L (6-16); Blood Urea Nitrogen 36 mg/dL (8-24); Bun/Creatinine Ratio 16.4 (12.0-20.0); CO2, Blood 32 mmol/L (21-32); Chloride, Blood 95 mmol/L (98-108); Creatinine, Blood 2.19 mg/dL (0.40-1.00); Glomerular Filtration Rate 24 (60-); Glucose, Blood 263 mg/dL (70-99); Phosphorus, Blood 1.8 mg/dL (2.5-4.9); Potassium, Blood 3.8 mmol/L (3.5-5.5); Sodium, Blood 137 mmol/L (136-145)
[2018-10-08 05:25] LABS: BASOPHILS ABSOLUTE AUTO 0.03 K/mm3 (0.00-0.23); BASOPHILS PERCENT AUTO 0 % (0-2); EOSINOPHILS ABSOLUTE AUTO 0.08 K/mm3 (0.00-0.68); EOSINOPHILS PERCENT AUTO 1 % (0-6); Hematocrit 30.1 % (33.0-51.0); Hemoglobin 9.4 g/dL (11.5-16.0); IMMATURE GRAN ABSOLUTE AUTO 0.09 K/mm3 (0.00-0.10); IMMATURE GRAN PERCENT AUTO 1 % (0-1); LYMPHOCYTES ABSOLUTE AUTO 0.82 K/mm3 (0.84-5.20); LYMPHOCYTES PERCENT AUTO 7 % (21-46); MONOCYTES ABSOLUTE AUTO 0.48 K/mm3 (0.16-1.47); MONOCYTES PERCENT AUTO 4 % (4-13); Mean Corpuscular HGB 28.9 pg (26.0-34.0); Mean Corpuscular HGB Conc 31.2 g/dL (31.5-36.5); Mean Corpuscular Volume 93 fL (80-100); Mean Platelet Volume 12.5 fL (9.1-12.4); NEUTROPHILS ABSOLUTE AUTO 9.66 K/mm3 (1.96-9.15); NEUTROPHILS PERCENT AUTO 87 % (41-73); Platelet Count 69 K/mm3 (150-400); RDW Coefficient Variation 15.2 % (11.7-14.2); RDW Standard Deviation 52.2 fL (35.1-46.3); Red Blood Cell Count 3.25 M/mm3 (3.80-5.20); White Blood Cell Count 11.16 K/mm3 (4.00-11.30)
--- NOTE | 2018-10-08 05:36 | NUR ---
POWERGLIDE DRESSING CHNAGE DONE PER STERILE TECHNIQUE WITHOUT DIFFICULTY.
--- NOTE | 2018-10-08 06:26 | NUR ---
PT HOLLERING OUT MORE THIS AM, CELSOERING SHE CAN'T BREATHE. LS CTA, NASAL CANNULA PLACED AT 2L FOR COMFORT. PT STILL CELSOERING BECOMING MORE ANXIOUS AND ARNALDO LOUDER UNABLE TO REDIRECT PT. HOSPITALIST CALLED AND ORDER RECEIVED FOR HALDOL 3MG IV X 1, GIVEN. WILL CONTINUE TO MONITOR.
[2018-10-08 07:21] LABS: PCO2 Arterial 47.6 mmHg (35-45); pH Blood Arterial 7.46 (7.35-7.45)
[2018-10-08 07:22] LABS: PO2 Arterial 48 mmHg (80-100)
--- NOTE | 2018-10-08 07:41 | NUR ---
REPORT TAKEN FROM MED FLOOR RN. DR JOEL IN UNIT AND NOTIFIED OF CONSULT.
--- NOTE | 2018-10-08 08:13 | NUR ---
PT ARRIVED AT 0750 AWAKE AND ORINETED TO NAME. PT VERY AGITATED, RESTLESS, IN ACUTE RESP DISTRESS. SATS 75-85% ON 4L O2. BIPAP PLACED IMMEDIATELY: 10/5 50%FIO2. RESTRAINTS PLACED AT 0800 PT WOULD NOT LEAVE BIPAP MASK ON. S/O AT BEDSIDE. PT HTN, BUT VERY RESTLESS, BP STARTING TO TREND DOWN, WILL MONITOR AND HOLD BP MEDS TO OBSERVE OVER THE NEXT 30MIN.
--- NOTE | 2018-10-08 08:50 | NUR ---
WHEN I ARRIVED THIS MORNING PATIENT WAS ANXIOUS, YELLING THAT SHE COULD NOT BREATHE. PATIENT WAS PLACED ON 4L O2 VIA NC WHICH SHE REFUSED TO KEEP IN HER NOSE. PULSE WAS HIGH, BLOOD PRESSURE WAS HIGH. SHE WAS VERY OUT OF IT. PATIENT HAD STAT ABG DRAWN AND HER PO2 WAS CRITICALLY LOW. DR. BLANCO NOTIFIED AND SHE CAME TO SEE THE PATIENT. PATIENT WAS PALE COMPARED TO YESTERDAY. SHE ORDERED A BIPAP AND TRANSFER TO ICU. REPORT GIVEN TO ICU NURSE SATYA SEBASTIAN AND PATIENT WHEELED DOWN TO ICU BY PRIMARY NURSE AND CHARGE NURSE. RT AWARE OF PATIENT COMING.
--- NOTE | 2018-10-08 10:30 | NUR ---
SATURATIONS 99-100% ON BIPAP. PT VERY AGITATED AND RESTLESS, YELLING "I CANT BREATH". LUNGS VERY DIMINISHED IN BASES W CRACKES. CRACKLES TO UPPER LOBES. DURING BATH RESTRAINTS REMOVED, PT IMMEDIATELY PULLED OFF BIPAP SEVERAL TIMES. HYDRALAZINE GIVEN FOR HTN. BP REMAINS HIGH MOST LIKELY D/T AGITATION. SKIN TEAR NOTED TO RIGHT FOREARM UNDER BANDAID. NEW DRSG APPLIED. PELON IN DIALYSIS CALLED REGARDING PT'S SOB AND CRACKLES. PT WILL BE NEXT IN LINE TO RECEIVE HD. PT CONTINUES TO YELL OUT AND PULLING ON RESTRAINTS. PT ORINETED TO NAME AND PLACE AND FAMILY ONLY. STATED YEAR MIGHT BE 2001. FORGETS INFORMATION EVERY 30SEC OR SO. DR BLANCO IN, UPDATE GIVEN
--- NOTE | 2018-10-08 13:09 | NUR ---
DR JOEL IN TO SEE PT AT 1200. CT SCAN W CONTRAST ORDERED TO R/O PE. DR SOSA CALLED; HD STOPPED AND WILL BE FINISHED AFTER CT COMPLETE PER DR SOSA. PRECEDEX STARTED AT 0.3MCG. PT REMAINS CONFUSED, RESTLESS, AND AGITATED.
--- NOTE | 2018-10-08 13:16 | NUR ---
HEMODIALYSIS ORDERED TODAY BY DR SOSA FOLLOWING PATIENT TRANSFER TO ICU FROM MED FLOOR DUE TO EXACERBATION OF SOB AND DECREASED O2 SATS. PATIENT ON TREATMENT AT 1200 WITHOUT DIFFICULTY. TREATMENT TERMINATED AT 1230 DUE TO STAT ORDER FOR CT OF CHEST WITH CONTRAST BY DR MARTINEZ WITH CONCURENCE FROM DR SOSA. PATIENT WILL BE DIALYZED THIS AFTERNOON AGAIN FOLLOWING CT TO REMOVE CONTRAST AND EFFECT PATIENTS FLUID STATUS.
--- NOTE | 2018-10-08 15:08 | NUR ---
50MCG FENTANYL GIVEN TO PT PRIOR TO CT SCAN PER DR JOEL. PT HAD BEEN SEVERLY AGITATED AND RESTLESS PRIOR TO FENT,PT WENT TO SLEEP SHORTLY AFTER FENT GIVEN SLOW IVP. PT TOLERATED CT SCAN WELL. PRECEDEX GTT TURNED OFF AFTER FENT GIVEN. PT REMAINS SLEEPING, APPEARS RESTFUL; AWAKENS TO TOUCH. BIPAP REMAINS ON.
[2018-10-08 15:14] LABS: Vancomycin, Random 21.7 ug/mL
--- NOTE | 2018-10-08 15:57 | NUR ---
PT WOKE UP YELLING FOR HELP AND FORCEFULLY REMOVED BIPAP WITH RESTRAINTS ON. PT AGITATED, RESTLESS, AND CONFUSED. PRECEDEX RESTARTED AT 0.5MCG. IF HTN DOES NOT IMPROVE WITH PRECEDEX, IV HYDRALAZINE WILL BE GIVEN SHORTLY. CRICAL HIGH TROPONIN CALLED INTO DR JOEL. NEW ORDERS TO REPEAT TROPONIN IN AM
--- NOTE | 2018-10-08 16:40 | NUR ---
PT CONTINUES TO PULL BIPAP OFF DESPITE RESTRAINTS. PT RESTLESS AND AGITATED. YELLS OUT "I CANT BREATH", RESP EVEN AND LABORED WHEN AWAKE, OTHERWISE UNLABORED. PRECEDEX INCREASED TO 0.7MCG.
--- NOTE | 2018-10-08 17:17 | NUR ---
DR JOEL CALLED FOR PT'S EXTREME AGITATION. PT CONT TO PULL BIPAP MASK OFF CAUSING SATS TO DROP. PELON AT BEDSIDE FOR HD
--- NOTE | 2018-10-08 17:32 | NUR ---
FENTANYL GIVEN FOR GENERALIZED PAIN.PT REMAINS AWAKE, AGITATED, RESTLESS, AND CONFUSED. RESP LABORED AT 35-38 BPM. O2 REQUIREMENTS HAVE INCREASED FROM 40% FIO2 TO 50%. SATS 91-94%, WHERE SHE HAD SATS 98-99% FOR THE MAJORITY OF THE SHIFT TODAY.
--- NOTE | 2018-10-08 17:40 | NUR ---
RT NOTIFIED, BIPAP SETTINGS CHANGED TO 12/5 WITH FIO2 AT 50%.
--- NOTE | 2018-10-08 18:19 | NUR ---
INVERTED QRS COMPLEX NOTED DURING HD, WILL CONT TO MONITOR. PT CONT TO BE AGITATED, RESTLESS, AND CONFUSED. PILLOWS PLACES ALONG SIDE RAIL PT HAS BEEN HITTING/TAPPING SIDE RAIL WHILE RESTRAINED. PELON MÁRQUEZ AT BEDSIDE FOR HD. PRECEDEX AT 0.7MCG
--- NOTE | 2018-10-08 19:00 | NUR ---
ASSUMED CARE ASSUMED CARE OF PATIENT. SEDATED WITH PRECEDEX @ 0.7MCG/KG/HR. OPENS EYES TO LOUD VERBAL STIMULI. MOVES ALL EXTREMITIES WEAKLY. NOT FOLLOWING ANY COMMANDS AT THIS TIME. BECOMES SLIGHTLY AGITATED WHEN AWAKE. BILATERAL SOFT WRIST RESTRAINTS IN PLACE TO PREVENT PT FROM PULLING OFF BIPAP. JOSE M, 2MM. MONITOR SHOWS NSR, RATE 60-70s, BP STABLE. HD CATH NOTED TO RIGHT CHEST. RUE FISTULA NOTED WITH BRUIT AND THRILL. ATTENDS IN PLACE. PAS TO BLE. SEE CHART FOR SKIN ASSESSMENT/WOUND PICS. SEE SHIFT ASSESSMENT FOR FULL ASSESSMENT.
[2018-10-08 19:25] LABS: Vancomycin, Random 13.5 ug/mL
--- NOTE | 2018-10-08 23:31 | NUR ---
SPOKE TO RN AROUND 2200, EVIDENTLY DAY SHIFT MISSED A ABG THAT WAS DUE AT 1300. RN IS GOING TO REORDER ANOTHER ABG FOR 0500. I WILL DELETE THE ABG THAT WAS DUE AT 1300 SO IT WILL COME OFF OUR ABG BOARD
--- NOTE | 2018-10-09 01:51 | NUR ---
BP DR. GRULLON NOTIFIED OF CONTINUED HYPOTENSION WITH SBP 80s AND MAP 60s. ORDER RECEIVED TO CONTINUE TO MONITOR AND TO MAINTAIN MAP >60.
[2018-10-09 04:59] LABS: PCO2 Arterial 37.3 mmHg (35-45); PO2 Arterial 58.8 mmHg (80-100); pH Blood Arterial 7.53 (7.35-7.45)
[2018-10-09 05:15] LABS: BASOPHILS ABSOLUTE AUTO 0.03 K/mm3 (0.00-0.23); BASOPHILS PERCENT AUTO 0 % (0-2); EOSINOPHILS PERCENT AUTO 0 % (0-6); Hematocrit 29.5 % (33.0-51.0); Hemoglobin 9.4 g/dL (11.5-16.0); IMMATURE GRAN PERCENT AUTO 1 % (0-1); LYMPHOCYTES ABSOLUTE AUTO 0.71 K/mm3 (0.84-5.20); LYMPHOCYTES PERCENT AUTO 6 % (21-46); MONOCYTES ABSOLUTE AUTO 0.26 K/mm3 (0.16-1.47); MONOCYTES PERCENT AUTO 2 % (4-13); Mean Corpuscular HGB 28.7 pg (26.0-34.0); Mean Corpuscular HGB Conc 31.9 g/dL (31.5-36.5); Mean Platelet Volume 12.9 fL (9.1-12.4); NEUTROPHILS ABSOLUTE AUTO 10.49 K/mm3 (1.96-9.15); NEUTROPHILS PERCENT AUTO 91 % (41-73); Platelet Count 87 K/mm3 (150-400); RDW Coefficient Variation 15.2 % (11.7-14.2); Red Blood Cell Count 3.27 M/mm3 (3.80-5.20); White Blood Cell Count 11.59 K/mm3 (4.00-11.30)
[2018-10-09 05:36] LABS: Albumin, Blood 1.6 g/dL (3.4-5.0); Anion Gap 11 mmol/L (6-16); Blood Urea Nitrogen 36 mg/dL (8-24); Bun/Creatinine Ratio 18.4 (12.0-20.0); CO2, Blood 29 mmol/L (21-32); Calcium, Blood 6.9 mg/dL (8.5-10.1); Chloride, Blood 95 mmol/L (98-108); Creatinine, Blood 1.96 mg/dL (0.40-1.00); Glomerular Filtration Rate 28 (60-); Glucose, Blood 354 mg/dL (70-99); Magnesium, Blood 1.8 mg/dL (1.6-2.4); Phosphorus, Blood 3.7 mg/dL (2.5-4.9); Sodium, Blood 135 mmol/L (136-145)
[2018-10-09 05:49] LABS: Mean Corpuscular Volume 90 fL (80-100)
--- NOTE | 2018-10-09 06:40 | NUR ---
SHIFT SUMMARY NO ACUTE CHANGES DURING NOC OTHER THAN ELEVATED TROPONIN. REMAINED ON BIPAP T/O SHIFT WITH ONLY Q FEW 2-4 MINUTE BREAKS. BIPAP 12/5, BUR 14, FIO2 NOW 40%. RESP RATE 16-20s. PRECEDEX INFUSED AT 0.7MCG/KG/HR T/O SHIFT. PT CONTINUES TO BE AGITATED AND RESTLESS AT TIMES. MEDICATED WITH FENTANYL 50MCG IV Q1-2H DURING SHIFT AN AN ADJUNCT TO SEDATION. BILATERAL SOFT WRIST RESTRAINTS REMAIN IN PLACE. VSS T/O NOC. ATTENDS IN PLACE- INCONTINENT X 1. WILL REPORT TO DAY SHIFT RN WHEN AVAILABLE.
--- NOTE | 2018-10-09 07:20 | NUR ---
REPORT TAKEN. EKG COMPLETED AND SHOWN TO DR JOEL WHO IS IN UNIT. UPDATE GIVEN. PT SLEEPING NOW, APPEARS RESTFUL. PRECEDEX AT 0.7MCG. DR ROLON CONSULTED.
--- NOTE | 2018-10-09 08:09 | NUR ---
DR JOEL AT BEDSIDE, NOTIFIED OF MURMUR. THEIR IS A CHANGE IN HEART TONES TODAY WITH BOTH SYSTOLIC AND DIASTOLIC MURMURS PRESENT. ECHO ORDERED FOR TODAY, NURSING SUPER. NOTIFIED. PT REMAINS ASLEEP, AWAKENS TO VOICE BUT FALLS BACK TO SLEEP QUICKLY.
--- NOTE | 2018-10-09 08:51 | NUR ---
ECHO ORDERED STAT. DR ROLON AT BEDSIDE WELL DR JOEL. JOHANNE; S/O GIVEN UPDATE. POSSIBLE INTUBATION, POSSIBLE PREDICTIVE MAINTENANCE SPECIALIST.
--- NOTE | 2018-10-09 09:16 | NUR ---
DR JOEL AND DR ZAFAR AT BEDSIDE TO REVIEW ECHO, SIGNIFICANT VEGITATION TO MULTIPLE VALVES. PER DR ROLON, PT IS NOT A SURGICAL CANDIDATE. PER DR JOEL, PT WILL NOT BE INTUBATED.
--- NOTE | 2018-10-09 11:48 | NUR ---
PT WOKE UP REQUESTING PANCAKES. REMAINED CONFUSED BUT MORE CALM WITH MORE APPROPRIATE CONVERSTAION.
--- NOTE | 2018-10-09 11:54 | NUR ---
SPOKE WITH [facility], PT'S S/O. PT IS TO BE TRANSFERED TO [facility] FOR EVALUATION OF SURGICAL INTERVENTION.
--- NOTE | 2018-10-09 12:03 | NUR ---
DR SOSA UPDATED, DR SOSA WOULD LIKE PT TO HAVE HD PRIOR TO TRANSFER. PELON MÁRQUEZ NOTIFIED
--- NOTE | 2018-10-09 12:55 | NUR ---
REPORT GIVEN TO BILLIE MÁRQUEZ. HD IN PROGRESS. PT SLEEPING
[2018-10-09 14:57] LABS: Vancomycin, Random 19.2 ug/mL
--- NOTE | 2018-10-09 15:02 | NUR ---
HD COMPLETE. PT WOKE UP AND ASKED TO WATCH THE SUPERBOWL. PT COOPERATIVE AND APPROPRIATE. RESTRAINTS REMOVED. REACH AT BEDSIDE TO TRANSFER PT TO [facility]. PT UPDATED AND AGREES WITH TRANSFER.
--- NOTE | 2018-10-09 15:43 | NUR ---
PT TRANSFERED TO [facility] IN CARE OF REACH AT 1535. PT'S S/O JOHANNE NOTIFIED PER PT REQUEST.
--- NOTE | 2018-10-09 18:42 | NUR ---
S/O JOHANNE PICKED UP PT'S BELONGINGS
== END 2018-10-09 15:37 | disposition short-term general hospital (02) | DRG 637 ==
LOC: ER 20:53 → ICUW 21:53 → ICUE 21:53 → ER 21:53 → ICUW 21:53 → ICUE 23:56 → ICUW 10-01 11:56 → ICUE 10-03 07:38 → PCU 10-03 09:24 → ICUE 10-03 09:24 → MEDS 10-05 12:13 → PCU 10-05 12:13 → MEDS 10-05 12:13 → ICUW 10-08 07:46
PROVIDERS: Emergency Medicine; Family Medicine; Internal Medicine Critical Care Medicine; Internal Medicine Nephrology; Pharmacist; ADMIT Hospitalist
PROC: 5A09357 Assistance with Respiratory Ventilation, Less than 24 Consecutive Hours, Continuous Positive Airway Pressure (ICD-10-PCS; principal; 2018-10-08)
DX: E11.00 Type 2 diabetes mellitus with hyperosmolarity without nonketotic hyperglycemic-hyperosmolar coma (NKHHC) (principal); N18.6 End stage renal disease; G92 Toxic encephalopathy; E43 Unspecified severe protein-calorie malnutrition; J96.01 Acute respiratory failure with hypoxia; I33.0 Acute and subacute infective endocarditis; F11.20 Opioid dependence, uncomplicated; E87.1 Hypo-osmolality and hyponatremia; N25.81 Secondary hyperparathyroidism of renal origin; N39.0 Urinary tract infection, site not specified; I16.9 Hypertensive crisis, unspecified; I13.0 Hypertensive heart and chronic kidney disease with heart failure and stage 1 through stage 4 chronic kidney disease, or unspecified chronic kidney disease; E11.40 Type 2 diabetes mellitus with diabetic neuropathy, unspecified; Z99.2 Dependence on renal dialysis; Z79.4 Long term (current) use of insulin; I16.0 Hypertensive urgency; R33.9 Retention of urine, unspecified; E03.9 Hypothyroidism, unspecified; K21.9 Gastro-esophageal reflux disease without esophagitis; D69.6 Thrombocytopenia, unspecified; E87.70 Fluid overload, unspecified; E11.22 Type 2 diabetes mellitus with diabetic chronic kidney disease; E88.09 Other disorders of plasma-protein metabolism, not elsewhere classified; E11.649 Type 2 diabetes mellitus with hypoglycemia without coma; Z91.14 Patient's other noncompliance with medication regimen; I08.0 Rheumatic disorders of both mitral and aortic valves; R45.1 Restlessness and agitation; I50.9 Heart failure, unspecified
CPT/HCPCS: 36415; 36600; 51702; 70450; 71045; 71046; 71260; 80048; 80053; 80069; 80202; 81001; 82010; 82803; 82947; 83690; 83735; 84484; 85014; 85018; 85025; 87040; 87077; 87086; 87147; 87186; 92526; 92610; 93005; 93010; 93306; 94640; 94660; 96361; 96372; 96374; 96375; 97110; 97162; 97166; 97530; 99285-25; C1751; G0378; J0360; J0881; J1630; J1644; J1815; J1956; J2185; J2405; J2920; J3010; J3370; J7030; J7042; J7060; Q9967